=== PATIENT | male | born 1960 | race Caucasian/White ===

== ENCOUNTER 2016-07-02 20:24 | Observation (INO) | payer BC, OTHER ==
[~2016-07-02] VITALS: Ht 175.3 cm; Wt 91.7 kg
[~2016-07-02 20:24] MED LIST: AZIT250T PO; BENZ200C59 PO; CHOL1CAP85 PO; FLUT0.0529 NAE; GUAI1TAB55 PO; HYDR-3419 PO; HYDR5SYP11 PO; IPRASOL4 INH; LCTX PO; NXM/40 PO; PRED10TA PO; PROP20TA67 PO; TRIA120A
[2016-07-02] MEDS ORDERED: SODIUM CHLORIDE 0.9% 1000ML 1,000 ML IV STA (20:45)
[2016-07-02] MEDS ORDERED: ONDANSETRON INJ 2 MG/ML 2 ML VIAL IV STA ×2 (20:45→20:53)
--- NOTE | 2016-07-02 20:59 | EMERGENCY ROOM VISIT NOTE ---
History Report prepared by Demetrio: Shayy Robertson Under the Supervision of: Dr. Jenn Schuster D.O. First contact with patient: 20:34 Chief Complaint: VOMITING Stated Complaint: VOMITING, DIZZINESS, SWEATING History of Present Illness The patient is a 55 year old male who presents to the Emergency Room with complaints of persistent room spinning dizziness starting 2.5 hours [employer]LLOW [employer] K[employer]IFE [employer]BLER. The patient states that after eating dinner he started feeling dizziness and then one hour later started having diaphoresis and vomiting. The patient states that prior to vomiting he had chest pain and abdominal pain. The patient states that he saw blood in his vomit. He states the has had blood in his vomit in the past. The patient's sister states that the patient had a chicken salad for lunch today and believes it might have caused the symptoms. The patient states that he has respiratory problems at baseline but states that it also feels like he is having trouble breathing currently. 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 Review of Systems See HPI for pertinent positives & negatives. A total of 10 systems reviewed and were otherwise negative. Past Medical & Surgical Medical Problems: (1) Acid reflux (2) Asthma Family History Diabetes mellitus Gallbladder disease Heart disease Hypertension Kidney disease Kidney stones Seizures Social History Smoking Status: Former Smoker Alcohol Use: other Marital Status: single Housing Status: lives alone Occupation Status: employed Current/Historical Medications Scheduled Aspirin (Aspirin 81), 81 MG PO QAM Azelastine Hcl (Astepro), 2 SPRY EDGAR BID Cetirizine (Zyrtec), 10 MG PO DAILY Cyclosporine (Ophth) (Restasis), 1 DROP OPB BID Docusate Sodium (Docusate Sodium), 100 MG PO BID Fluorometholone (Ophth) (Fluorometholone), 1 DROP OPB BID Gabapentin (Neurontin), 100 MG PO TID Guaifenesin Ext Rel (Mucinex Ext Rel), 1,200 MG PO Q12 Ipratropium-Albuterol (Duoneb), 1 TREATMENT INH QID Lansoprazole (Prevacid), 30 MG PO DAILY Mometasone Furoate-Formoterol (Dulera 200/5 Mcg), 2 PUFFS INH BID Montelukast Sodium (Singulair), 10 MG PO HS Polyethylene Glycol 3350 (Miralax), 17 GM PO DAILY Primidone (Mysoline), 100 MG PO HS Ranitidine (Zantac), 300 MG PO HS Tiotropium [place] (Spiriva Handihaler), 1 CAP INH QAM Triamcinolone Acet (Triamcinolone Acetonide), 1 APPLN TOP TID Scheduled PRN Amoxicillin & Pot Clavulanate (Augmentin 875-125 mg), 1 TAB PO BID PRN for RESCUE KIT Dicyclomine Hcl (Bentyl), 10 MG PO TID PRN for STOMACH PAIN Furosemide (Lasix), 20 MG PO QAM PRN for WT GAIN OR FLUID RETENTION Hydroxyzine Pamoate (Vistaril), 25 MG PO HS PRN for Itching Ipratropium-Albuterol (Combivent Respimat), 2 PUFFS INH QID PRN for Shortness of Breath Prednisone (Prednisone Tab), 20 MG PO RESCUE DOSE PRN for RESCUE KIT Saline (Saline Nasal [place]), 1 SPRAY N/A Q2-4HRS PRN for DRYNESS Allergies Coded Allergies: No Known Allergies (Unverified , 07/02/16) Physical Exam Vital Signs Date Time Temp Pulse Resp B/P Pulse Ox O2 Delivery O2 Flow Rate FiO2 07/03/16 01:12 91 07/03/16 01:01 89 18 127/75 98 Room Air 07/03/16 00:19 89 18 128/82 95 Room Air 07/02/16 23:30 73 18 128/84 95 Room Air 07/02/16 22:06 72 20 122/75 100 Room Air 07/02/16 21:10 77 07/02/16 21:09 75 24 117/81 94 Room Air 07/02/16 20:31 78 20 156/89 95 Room Air Physical Exam General: Patient is moaning, dry heaving. HEENT: Head - normocephalic and atraumatic Pupils are equal, round, and reactive to light. The patient refused to significantly open his eyes because this exacerbated the room spinning. Nose - moist nasal mucosa without discharge. Mouth - moist buccal mucosa. Oropharynx is nonerythematous and there is no tonsillar exudate or edema noted. Neck: Supple; no JVD, nuchal rigidity, cervical lymphadenopathy. Heart: Regular rate and rhythm. There is a normal S1 and S2 with no murmurs, clicks, or gallops appreciated. Lungs: Clear to auscultation bilaterally with no wheezes, rales, or rhonchi. Abdomen: Soft, completely nontender, nondistended, with good bowel sounds. There are no palpable pulsatile masses or hepatosplenomegaly. There is no guarding, rigidity, or rebound noted. Extremities: No evidence of cyanosis, clubbing, or edema. There are easily palpable peripheral pulses. Skin: warm and dry with good turgor and no rashes. Medical Decision & Procedures ER Provider Diagnostic Interpretation: CT results as stated below per my review and radiologist interpretation: Preliminary Findings Only--- See Final Report for Complete Findings: CT HEAD: No intracranial hemorrhage or mass effect Under pneumatized left mastoid air cells CT ABDOMEN & PELVIS Mild diffuse colonic wall thickening, suspicious for a nonspecific colitis. Apparent fatty infiltration of the colonic wall suggest chronic inflammatory bowel disease. Correlate with medical history. Remainder of examination shows no define evidence for an acute inflammatory process No evidence for hemorrhage or a mass. Radiologist: Rashad Jack MD Study ready at 0008 and initial results transmitted at 0018 Laboratory Results Test 07/02/16 20:50 Immature Granulocyte % (Auto) 0.3 % White Blood Count 13.40 K/uL (4.8-10.8) Red Blood Count 4.89 M/uL (4.7-6.1) Hemoglobin 15.4 g/dL (14.0-18.0) Hematocrit 44.9 % (42-52) Mean Corpuscular Volume 91.8 fL (80-100) Mean Corpuscular Hemoglobin 31.5 pg (25-34) Mean Corpuscular Hemoglobin Concent 34.3 g/dl (32-36) Platelet Count 273 K/uL (130-400) Mean Platelet Volume 9.6 fL (7.4-10.4) Neutrophils (%) (Auto) 68.9 % Lymphocytes (%) (Auto) 21.3 % Monocytes (%) (Auto) 7.2 % Eosinophils (%) (Auto) 1.8 % Basophils (%) (Auto) 0.5 % Neutrophils # (Auto) 9.24 K/uL (1.4-6.5) Lymphocytes # (Auto) 2.85 K/uL (1.2-3.4) Monocytes # (Auto) 0.96 K/uL (0.11-0.59) Eosinophils # (Auto) 0.24 K/uL (0-0.5) Basophils # (Auto) 0.07 K/uL (0-0.2) Immature Granulocyte # (Auto) 0.04 K/uL (0.00-0.02) Red Blood Cell Morphology Unremarkable Total Bilirubin 0.4 mg/dl (0.2-1) Direct Bilirubin < 0.1 mg/dl (0-0.2) Aspartate Amino Transf (AST/SGOT) 21 U/L (15-37) Alanine Aminotransferase (ALT/SGPT) 29 U/L (12-78) Alkaline Phosphatase 112 U/L (45-117) Total Creatine Kinase 152 U/L (39-308) Creatine Kinase MB 1.6 ng/ml (0.5-3.6) Creatine Kinase MB Ratio 1.1 (0-3.0) Troponin I < 0.015 ng/ml (0-0.045) Total Protein 7.0 gm/dl (6.4-8.2) Albumin 3.7 gm/dl (3.4-5.0) Lipase 132 U/L (73-393) Laboratory results per my review. Medications Administered Medications (Trade) Dose Ordered Sig/Ericka Route Start Time Stop Time Status Last Admin Dose Admin Ondansetron HCl 4 mg 4 mg NOW STAT IV 07/02/16 20:45 07/02/16 20:47 DC 07/02/16 21:01 4 MG Sodium Chloride (Nss 1000ml) 1,000 ml @ 250 mls/hr Q4H STAT IV 07/02/16 20:45 07/03/16 00:44 DC 07/02/16 21:02 250 MLS/HR Ondansetron HCl (Zofran Inj) 4 mg NOW STAT IV 07/02/16 20:53 07/02/16 20:54 DC 07/02/16 21:02 4 MG Lorazepam 2 mg 2 mg NOW STAT IV 07/02/16 21:58 07/02/16 21:59 DC 07/02/16 22:04 2 MG Promethazine HCl/ Sodium Chloride (Phenergan Inj/ Nss 50ml) 51 ml @ 204 mls/hr NOW STAT IV 07/02/16 23:14 07/02/16 23:28 DC 07/02/16 23:25 204 MLS/HR Meclizine HCl (Antivert Tab) 25 mg NOW STAT PO 07/03/16 00:33 07/03/16 00:34 DC 07/03/16 00:42 25 MG Procedure Medications Administered: Sodium Chloride Ondansetron HCl Lorazepam Promethazine HCl 25 mg/Sodium Chloride Meclizine ECG Indication: vomiting Rate (beats per minute): 72 Rhythm: normal sinus Findings: no acute ischemic change, no ectopy ED Course 2033: Past medical records reviewed. The patient was evaluated in room B5. A complete history and physical exam was performed. A twelve-lead EKG was obtained as described above. An IV lock was initiated and labs were drawn as above. 2044: Ordered Sodium Chloride 1,000 ml @ 250 mls/hr IV, Zofran Inj 4 mg IV. 2156: I reevaluated the patient and he states he is still nauseated and is dizzy. 2157: Ordered Ativan Inj 2 mg IV. 2231: I reevaluated the patient and he was fast asleep. I will come back to wake him up later and try to see if he can drink. I went over the lab results with the patient's sister. 0: I reevaluated the patient. When he woke up he started to vomit and is unable to open is eyes due to the dizziness. He states he is also having right lower abdominal pain now. He will go for a CT of his head and abdomen. The patient states that he has seen a Salvage Mend Worker in the past due to constipation and GERD. 4: Ordered Promethazine HCl 25 mg/ Sodium Chloride 51 ml @ 204 mls/hr IV. 0030: I reevaluated the patient. He states he is still not any better. He is still unable to open his eyes due to the dizziness and is still vomiting. I reviewed the results of all the testing with the patient and his sister. 7: I discussed the case with Dr. Ru Garcia Hospitalist. He agreed to evaluate the patient for further management and care. Medical Decision The patient is a 55 year old male who presents to the ED with dizziness and vomiting. Differential diagnosis includes pancreatitis, cardiac ischemia, appendicitis, vertigo, labyrinthitis, food borne illness, gastritis, and small bowel obstruction. Labs: White count 13.4 Stable H&H Normal renal function Glucose 159 Normal LFTs Normal cardiac enzymes Normal Lipase This is a 55-year-old male patient who had a fairly sudden onset of room spinning and vomiting. His symptoms seemed consistent with an episode of vertigo, however the patient describes some right lower quadrant abdominal pain and a headache. CT scan of the brain was unremarkable. CT scan of the abdomen/ pelvis showed a nonspecific colitis. The patient made it very clear that the majority of his symptoms are secondary to the room spinning. He felt that he is unable to go home in his condition. I discussed the case with the [facility] Hospitalist and they will evaluate for further management. Consults Time Called: 30 Consulting Physician: Dr. Ru Mendoza Returned Call: [phone] I discussed the case with Dr. Ru Mendoza. He agreed to evaluate the patient for further management and care. Impression Primary Impression: Vertigo Additional Impression: Vomiting Scribe Attestation The scribe's documentation has been prepared under my direction and personally reviewed by me in its entirety. I confirm that the note above accurately reflects all work, treatment, procedures, and medical decision making performed by me. Departure Information Dispostion Being Evaluated By Hospitalist Referrals Gale Walls M.D. (MEDICAL) (PCP) Patient Instructions My [facility] Problem Qualifiers
[2016-07-02 21:03] LABS: HEMATOCRIT 44.9 % (42-52); MEAN CELL VOLUME 91.8 fL (80-100); MEAN CORPUSCULAR HEMOGLOBIN 31.5 pg (25-34); MEAN CORPUSCULAR HGB CONC 34.3 g/dl (32-36); MEAN PLATELET VOLUME 9.6 fL (7.4-10.4); PLATELET COUNT 273 K/uL (130-400); RED BLOOD COUNT 4.89 M/uL (4.7-6.1)
[2016-07-02 21:20] LABS: ALT/SGPT 29 U/L (12-78); BLOOD UREA NITROGEN 16 mg/dl (7-18); BUN/CREATININE RATIO 18.1 (10-20); CARBON DIOXIDE 27 mmol/L (21-32); CHLORIDE 107 mmol/L (98-107); CREATININE 0.86 mg/dl (0.60-1.40); GLUCOSE 159 mg/dl (70-99); POTASSIUM 3.6 mmol/L (3.5-5.1); SODIUM 142 mmol/L (136-145)
[2016-07-02 21:24] LABS: BASO % 0.5 %; BASO ABS # 0.07 K/uL (0-0.2); COMPLETE YES; EOS % 1.8 %; IG% 0.3 %; LYMPH % 21.3 %; LYMPH ABS # 2.85 K/uL (1.2-3.4); MONO % 7.2 %; NEUT % 68.9 %
[2016-07-02 21:25] LABS: ALKALINE PHOSPHATASE 112 U/L (45-117); AST/SGOT 21 U/L (15-37); CKMB/CK RATIO 1.1 (0-3.0)
[2016-07-02] MEDS ORDERED: DICY10CA55 PO (21:52)
[2016-07-02] MEDS ORDERED: CETI10TA84 PO (21:52)
[2016-07-02] MEDS ORDERED: LANS30CA12 PO (21:52)
[2016-07-02] MEDS ORDERED: LORAZEPAM 2 MG/ML 1 ML VIAL IV STA (21:58)
[2016-07-02] MEDS ORDERED: PROMETHAZINE HCL INJ 25 MG in SODIUM CHLORIDE 0.9% 50ML 50 ML IV STA (23:14)
[2016-07-02] MEDS ORDERED: OPTIRAY 320 IV PRN (23:30)
[2016-07-03] MEDS ORDERED: MECLIZINE HCL 25 MG TAB PO STA (00:33)
[2016-07-03] MEDS ORDERED: ONDANSETRON INJ 2 MG/ML 2 ML VIAL IV PRN (02:15)
[2016-07-03 03:15] VITALS: BP 113/71; PULSE 68; TEMP 36.3; O2SAT 93; Ht 175.3 cm; Wt 91.7 kg
[2016-07-03] MEDS ORDERED: SODIUM CHLORIDE 0.9% 1000ML 1,000 ML IV SCH (04:15)
--- NOTE | 2016-07-03 05:56 | History and Physical ---
History & Physical Date & Time of Service: Jul 03, 2016 at 05:31 Chief Complaint: Vertigo, Vomiting Primary Care Physician: Gale Walls M.D. (MEDICAL) History of Present Illness Source: patient, clinic records, hospital records 55 year old male with PMH of COPD, tremor, Cholesteatoma of L ear presents to the Emergency Room with complaints of vomiting and dizziness that started about 7pm last night. Pt said that the symptoms started after eating a chicken salad. He said about six hours later he started feeling dizziness and then one hour later started having diaphoresis and vomiting.He said that he had 6 episodes of vomiting associated with diffuse cramping abdominal pain. He said that there was some blood only in the 1st episode. He said that he still feels dizzy, he describes it like the room is spinning. Pt also complaint of SOB that he said that s baseline because he has COPD. He has not had any vomiting since he has been in the ER. Past Medical/Surgical History Medical Problems: (1) Asthma Status: Chronic Family History Diabetes mellitus Gallbladder disease Heart disease Hypertension Kidney disease Kidney stones Seizures Social History Smoking Status: Former Smoker Marital Status: single Occupational Status: employed Immunizations History of Influenza Vaccine: Yes Influenza Vaccine Date: May 30, 2013 History of Tetanus Vaccine?: unknown History of Pneumococcal: Yes Pneumococcal Date: May 30, 2013 History of Hepatitis B Vaccine: No Multi-Drug Resistant Organisms History of MDRO: No Allergies Coded Allergies: No Known Allergies (Unverified , 07/02/16) Home Medications Scheduled Aspirin (Aspirin 81), 81 MG PO QAM Azelastine Hcl (Astepro), 2 SPRY EDGAR BID Cetirizine (Zyrtec), 10 MG PO DAILY Cyclosporine (Ophth) (Restasis), 1 DROP OPB BID Docusate Sodium (Docusate Sodium), 100 MG PO BID Fluorometholone (Ophth) (Fluorometholone), 1 DROP OPB BID Gabapentin (Neurontin), 100 MG PO TID Ipratropium-Albuterol (Duoneb), 1 TREATMENT INH QID Lansoprazole (Prevacid), 30 MG PO DAILY Mometasone Furoate-Formoterol (Dulera 200/5 Mcg), 2 PUFFS INH BID Montelukast Sodium (Singulair), 10 MG PO HS Polyethylene Glycol 3350 (Miralax), 17 GM PO DAILY Primidone (Mysoline), 100 MG PO HS Ranitidine (Zantac), 300 MG PO HS Tiotropium [place] (Spiriva Handihaler), 1 CAP INH QAM Triamcinolone Acet (Triamcinolone Acetonide), 1 APPLN TOP TID Scheduled PRN Amoxicillin & Pot Clavulanate (Augmentin 875-125 mg), 1 TAB PO BID PRN for RESCUE KIT Dicyclomine Hcl (Bentyl), 10 MG PO TID PRN for STOMACH PAIN Furosemide (Lasix), 20 MG PO QAM PRN for WT GAIN OR FLUID RETENTION Hydroxyzine Pamoate (Vistaril), 25 MG PO HS PRN for Itching Ipratropium-Albuterol (Combivent Respimat), 2 PUFFS INH QID PRN for Shortness of Breath Prednisone (Prednisone Tab), 20 MG PO RESCUE DOSE PRN for RESCUE KIT Saline (Saline Nasal [place]), 1 SPRAY N/A Q2-4HRS PRN for DRYNESS Review of Systems Constitutional: + sweats, No chills, No fever Eyes: No discharge ENT: + hearing loss, + nasal symptoms, + unusual epistaxis Respiratory: + dyspnea on exertion, No cough, No sputum Cardiovascular: No claudication, No palpitations Abdomen: + nausea, + pain, + vomiting, No constipation, No diarrhea Musculoskeletal: No calf pain Genitourinary - Male: No dysuria, No hematuria Neurologic: + vertigo, No memory loss, No weakness Psychiatric: No substance abuse Endocrine: No excessive thirst Hematologic / Lymphatic: No night sweats Integumentary: No itch, No rash Physical Exam Vital Signs Date Time Temp Pulse Resp B/P Pulse Ox O2 Delivery O2 Flow Rate FiO2 07/03/16 03:15 36.3 68 20 113/71 93 Room Air 07/03/16 02:47 75 18 127/82 98 07/03/16 01:12 91 07/03/16 01:01 89 18 127/75 98 Room Air 07/03/16 00:19 89 18 128/82 95 Room Air 07/02/16 23:30 73 18 128/84 95 Room Air 07/02/16 22:06 72 20 122/75 100 Room Air 07/02/16 21:10 77 07/02/16 21:09 75 24 117/81 94 Room Air 07/02/16 20:31 78 20 156/89 95 Room Air General Appearance: WD/WN, no apparent distress Head: normocephalic, atraumatic Eyes: normal inspection, PERRL ENT: normal ENT inspection, + pertinent finding (deacrease hearing fx) Neck: supple, no JVD Respiratory/Chest: chest non-tender, no respiratory distress, no accessory muscle use Cardiovascular: regular rate, rhythm, no JVD, no murmur Abdomen/GI: normal bowel sounds, soft, + tenderness Back: normal inspection, no CVA tenderness Extremities/Musculoskelatal: normal inspection, no calf tenderness Neurologic/Psych: no motor/sensory deficits, alert, normal mood/affect Skin: normal color, warm/dry Diagnostics Laboratory Results Results Past 24 Hours Test 07/02/16 20:50 Range/Units White Blood Count 13.40 4.8-10.8 K/uL Red Blood Count 4.89 4.7-6.1 M/uL Hemoglobin 15.4 14.0-18.0 g/dL Hematocrit 44.9 42-52 % Mean Corpuscular Volume 91.8 80-100 fL Mean Corpuscular Hemoglobin 31.5 25-34 pg Mean Corpuscular Hemoglobin Concent 34.3 32-36 g/dl Platelet Count 273 130-400 K/uL Mean Platelet Volume 9.6 7.4-10.4 fL Neutrophils (%) (Auto) 68.9 % Lymphocytes (%) (Auto) 21.3 % Monocytes (%) (Auto) 7.2 % Eosinophils (%) (Auto) 1.8 % Basophils (%) (Auto) 0.5 % Neutrophils # (Auto) 9.24 1.4-6.5 K/uL Lymphocytes # (Auto) 2.85 1.2-3.4 K/uL Monocytes # (Auto) 0.96 0.11-0.59 K/uL Eosinophils # (Auto) 0.24 0-0.5 K/uL Basophils # (Auto) 0.07 0-0.2 K/uL RDW Standard Deviation 46.9 36.4-46.3 fL RDW Coefficient of Variation 13.9 11.5-14.5 % Immature Granulocyte % (Auto) 0.3 % Immature Granulocyte # (Auto) 0.04 0.00-0.02 K/uL Red Blood Cell Morphology Unremarkable Sodium Level 142 136-145 mmol/L Potassium Level 3.6 3.5-5.1 mmol/L Chloride Level 107 98-107 mmol/L Carbon Dioxide Level 27 21-32 mmol/L Anion Gap 8.0 3-11 mmol/L Blood Urea Nitrogen 16 7-18 mg/dl Creatinine 0.86 0.60-1.40 mg/dl Est Creatinine Clear Calc Drug Dose 108.0 ml/min Estimated GFR () 114.7 Estimated GFR (Non- 99.0 BUN/Creatinine Ratio 18.1 10-20 Random Glucose 159 70-99 mg/dl Calcium Level 9.0 8.5-10.1 mg/dl Total Bilirubin 0.4 0.2-1 mg/dl Direct Bilirubin < 0.1 0-0.2 mg/dl Aspartate Amino Transf (AST/SGOT) 21 15-37 U/L Alanine Aminotransferase (ALT/SGPT) 29 12-78 U/L Alkaline Phosphatase 112 45-117 U/L Total Creatine Kinase 152 39-308 U/L Creatine Kinase MB 1.6 0.5-3.6 ng/ml Creatine Kinase MB Ratio 1.1 0-3.0 Troponin I < 0.015 0-0.045 ng/ml Total Protein 7.0 6.4-8.2 gm/dl Albumin 3.7 3.4-5.0 gm/dl Lipase 132 73-393 U/L Diagnostic Radiology CT HEAD: No intracranial hemorrhage or mass effect Under pneumatized left mastoid air cells CT ABDOMEN & PELVIS Mild diffuse colonic wall thickening, suspicious for a nonspecific colitis. Apparent fatty infiltration of the colonic wall suggest chronic inflammatory bowel disease. Correlate with medical history. Remainder of examination shows no define evidence for an acute inflammatory process No evidence for hemorrhage or a mass. Radiologist: Rashad Jack MD Impression Assessment and Plan Vomiting associated with abdominal pain Mostly due to Viral gastroenteritis CT showed Mild diffuse colonic wall thickening, suspicious for a nonspecific colitis. NO abx was given IVF, Zofran and pantoprazole Monitor h/h due to blood in the vomiting? hold aspirin Symptoms resolved Dizziness CT head negative continue meclizine PT eval COPD no exacerbation continue home med Essential Tremor Continue mysoline DVT px on SCDs will encourage to ambulate CODE Status FULL CODE Level of Care Med/Surg Advanced Directives Existing Living Will: No Existing Power of Social Work Nurse: No Resuscitation Status FULL RESUSCITATION VTE Prophylaxis VTE Risk Assessment Done? Y/N: Yes Risk Level: Moderate Given or contraindicated: SCD's
[2016-07-03] MEDS ORDERED: MECLIZINE HCL 25 MG TAB PO PRN (06:00)
[2016-07-03] MEDS ORDERED: IV FLUIDS COMPLETED PRN (06:45)
[2016-07-03 07:12] LABS: HEMATOCRIT 43.3 % (42-52); MEAN CELL VOLUME 92.5 fL (80-100); MEAN CORPUSCULAR HEMOGLOBIN 31.4 pg (25-34); MEAN CORPUSCULAR HGB CONC 33.9 g/dl (32-36); MEAN PLATELET VOLUME 9.6 fL (7.4-10.4); PLATELET COUNT 243 K/uL (130-400); RED BLOOD COUNT 4.68 M/uL (4.7-6.1); WHITE BLOOD COUNT 12.66 K/uL (4.8-10.8)
--- NOTE | 2016-07-03 07:19 | DIAGNOSTIC IMAGING REPORT ---
HEAD CT NONCONTRAST CT DOSE: 651.12 mGy.cm HISTORY: Lightheaded. eval for mass or bleed TECHNIQUE: Multiaxial CT images of the head were performed without the use of intravenous contrast. Automated exposure control was utilized for this study. Comparison: None. Findings: Mild mucosal thickening within the left maxillary sinus and left frontal sinus. Opacification of the hypoplastic left mastoid air cells and left middle ear cavity which is likely chronic. The calvarium and skull base are intact. The ventricles and sulci are within normal limits. There is no mass, hematoma, midline shift, or acute infarct. Impression: No acute intracranial abnormality. Hypoplastic and opacified left mastoid air cells and left middle ear cavity which is likely chronic. Electronically signed by: Kevin Appiah M.D. 07/03/2016 7:17 AM Dictated Date/Time: 07/03/2016 7:15 AM
[2016-07-03 07:20] VITALS: BP 120/73; PULSE 65; TEMP 36.5; O2SAT 93
--- NOTE | 2016-07-03 07:27 | DIAGNOSTIC IMAGING REPORT ---
CT ABD/PELVIS IV CONTRAST ONLY CLINICAL HISTORY: Right lower quadrant abdominal pain COMPARISON STUDY: 05/24/2013 TECHNIQUE: Following the IV administration of 91 mL of Optiray-320, CT scan of the abdomen and pelvis was performed from the lung bases to the proximal femurs. Images are reviewed in the axial, sagittal, and coronal planes. IV contrast was administered without complication. CT DOSE: 561.11 mGy.cm FINDINGS: Lower chest: There are mild dependent atelectatic changes. There is a 9 mm nodular left basilar airspace opacity. This is likely atelectatic/inflammatory. There is lower lobe mucus plugging. Liver: There is mild hepatic steatosis. No focal masses are visualized. The portal vein appears patent. Gallbladder: Unremarkable. Spleen: Normal in size and attenuation. Pancreas: Unremarkable. Adrenal glands: Unremarkable. Kidneys: There is symmetric renal cortical enhancement. The kidneys are normal in size without hydronephrosis. Bowel: There is hypertrophy of the simple mucosal fat within the colon. The appendix appears normal. There is no acute diverticulitis. There are no transition zones indicate bowel obstruction. Peritoneum: There is no intraperitoneal free air or abdominal ascites. Vasculature: The abdominal aorta is normal in course and caliber. Adenopathy: None. Pelvic viscera: The bladder, and pelvic viscera are unremarkable. Skeletal structures: No destructive osseous lesions are seen. IMPRESSION: 1. No evidence of bowel obstruction. No evidence of free air 2. Normal appendix. No evidence of acute diverticulitis 3. Hypertrophy of the submucosal fat within the colon. This a nonspecific finding often seen in inflammatory bowel disease 4. Lower lobe mucus plugging. 9 mm left lower lobe nodular airspace opacity, likely atelectatic or inflammatory. Electronically signed by: Jabari Yusuf M.D. 07/03/2016 7:25 AM Dictated Date/Time: 07/03/2016 7:20 AM
[2016-07-03 07:46] LABS: BUN/CREATININE RATIO 19.1 (10-20); CALCIUM 8.1 mg/dl (8.5-10.1); CREATININE 0.67 mg/dl (0.60-1.40)
[2016-07-03] MEDS: ALBUT/IPRATROP 3MG/0.5MG NEB 3 ML VIAL INH SCH ×3 (08:00→16:00)
[2016-07-03] MEDS: TRIAMCINOLONE ACET 0.5% CR 15 GM TUBE EXT SCH ×3 (08:34→13:17)
[2016-07-03] MEDS: GABAPENTIN 100 MG CAP PO SCH ×2 (08:34→13:41)
[2016-07-03] MEDS ORDERED: PANTOprazole SOD 40 MG TAB PO SCH (09:00)
[2016-07-03] MEDS ORDERED: TIOTROPIUM BROMIDE 5 PUFF/90 MCG INH INH SCH (09:00)
[2016-07-03] MEDS ORDERED: CETIRIZINE HCL 10 MG TAB PO SCH (09:00)
[2016-07-03] MEDS ORDERED: NURSING VERBAL MED ORDER ONE (10:15)
--- NOTE | 2016-07-03 10:34 | Progress Note ---
Internal Med Progress Note Date of Service: Jul 03, 2016. Provider Documentation: SUBJECTIVE: Patient is doing better today. Tolerated mechanical soft diet well No nausea, vomiting, abdominal pain ,diarrhea, fever, chills. Vertigo has resolved, no dizziness, headaches, localized muscle weakness, numbness/decreased sensation OBJECTIVE: Vital Signs-as noted below Exam: General-AAOX3, no distress ENT-Poor oral hygiene Neck-Supple Lungs-AEBE decreased, mild wheezing Heart-S1, S2 normal, no murmurs Abdomen-Soft, non tender, non distended, BS present Extremities-No edema Neuro-AAOX3, Power- 5/5 all extremities, No nystagmus Lab data as noted below. Diagnostic Radiology CT HEAD: No intracranial hemorrhage or mass effect Under pneumatized left mastoid air cells CT ABDOMEN & PELVIS Mild diffuse colonic wall thickening, suspicious for a nonspecific colitis. Apparent fatty infiltration of the colonic wall suggest chronic inflammatory bowel disease. Correlate with medical history. Remainder of examination shows no define evidence for an acute inflammatory process No evidence for hemorrhage or a mass. ASSESSMENT & PLAN: Assessment and Plan : VOMITING/NAUSEA/ABDOMINAL PAIN: Improved Likely secondary to Viral gastroenteritis/Non specific colitis CT showed Mild diffuse colonic wall thickening, suspicious for a nonspecific colitis. Said ? saw blood in first vomitus, but never after that, possibly salad dressing. -IV Fluids -No indication for antibiotics -Supportive care -Advance diet as tolerated VERTIGO- C/o vertigo which started before nausea/vomiting began. Says has had this in past as well. Has hx of cholesteotoma of left ear, could be secondary to inner ear issues ? -Resolved now -Encouraged ambulation -Work up- CT head negative for acute abnormalities -Meclizine PRN COPD Mild wheezing, but no signs of exacerbation -Continue with home inhalers -Will give few nebs rx while in hospital continue home med ESSENTIAL TREMORS- Stable -Continue mysoline DVT px on SCDs Encouraged ambulation CODE Status -FULL CODE Vital Signs: Date Time Temp Pulse Resp B/P Pulse Ox O2 Delivery O2 Flow Rate FiO2 07/03/16 07:20 36.5 65 16 120/73 93 Room Air 07/03/16 03:15 36.3 68 20 113/71 93 Room Air 07/03/16 02:47 75 18 127/82 98 07/03/16 01:12 91 07/03/16 01:01 89 18 127/75 98 Room Air 07/03/16 00:19 89 18 128/82 95 Room Air 07/02/16 23:30 73 18 128/84 95 Room Air 07/02/16 22:06 72 20 122/75 100 Room Air 07/02/16 21:10 77 07/02/16 21:09 75 24 117/81 94 Room Air 07/02/16 20:31 78 20 156/89 95 Room Air Lab Results: Results Past 24 Hours Test 07/02/16 20:50 07/03/16 06:50 07/03/16 10:27 Range/Units White Blood Count 13.40 12.66 4.8-10.8 K/uL Red Blood Count 4.89 4.68 4.7-6.1 M/uL Hemoglobin 15.4 14.7 14.0-18.0 g/dL Hematocrit 44.9 43.3 42-52 % Mean Corpuscular Volume 91.8 92.5 80-100 fL Mean Corpuscular Hemoglobin 31.5 31.4 25-34 pg Mean Corpuscular Hemoglobin Concent 34.3 33.9 32-36 g/dl Platelet Count 273 243 130-400 K/uL Mean Platelet Volume 9.6 9.6 7.4-10.4 fL Neutrophils (%) (Auto) 68.9 % Lymphocytes (%) (Auto) 21.3 % Monocytes (%) (Auto) 7.2 % Eosinophils (%) (Auto) 1.8 % Basophils (%) (Auto) 0.5 % Neutrophils # (Auto) 9.24 1.4-6.5 K/uL Lymphocytes # (Auto) 2.85 1.2-3.4 K/uL Monocytes # (Auto) 0.96 0.11-0.59 K/uL Eosinophils # (Auto) 0.24 0-0.5 K/uL Basophils # (Auto) 0.07 0-0.2 K/uL RDW Standard Deviation 46.9 48.0 36.4-46.3 fL RDW Coefficient of Variation 13.9 14.2 11.5-14.5 % Immature Granulocyte % (Auto) 0.3 % Immature Granulocyte # (Auto) 0.04 0.00-0.02 K/uL Red Blood Cell Morphology Unremarkable Sodium Level 142 145 136-145 mmol/L Potassium Level 3.6 4.0 3.5-5.1 mmol/L Chloride Level 107 111 98-107 mmol/L Carbon Dioxide Level 27 28 21-32 mmol/L Anion Gap 8.0 6.0 3-11 mmol/L Blood Urea Nitrogen 16 13 7-18 mg/dl Creatinine 0.86 0.67 0.60-1.40 mg/dl Est Creatinine Clear Calc Drug Dose 108.0 142.7 ml/min Estimated GFR () 114.7 127.1 Estimated GFR (Non- 99.0 109.7 BUN/Creatinine Ratio 18.1 19.1 10-20 Random Glucose 159 98 70-99 mg/dl Calcium Level 9.0 8.1 8.5-10.1 mg/dl Total Bilirubin 0.4 0.2-1 mg/dl Direct Bilirubin < 0.1 0-0.2 mg/dl Aspartate Amino Transf (AST/SGOT) 21 15-37 U/L Alanine Aminotransferase (ALT/SGPT) 29 12-78 U/L Alkaline Phosphatase 112 45-117 U/L Total Creatine Kinase 152 39-308 U/L Creatine Kinase MB 1.6 0.5-3.6 ng/ml Creatine Kinase MB Ratio 1.1 0-3.0 Troponin I < 0.015 0-0.045 ng/ml Total Protein 7.0 6.4-8.2 gm/dl Albumin 3.7 3.4-5.0 gm/dl Lipase 132 73-393 U/L
[2016-07-03 11:28] VITALS: BP 100/72; PULSE 67; O2SAT 94
[2016-07-03 15:13] VITALS: BP 116/70; PULSE 64; TEMP 36.6; O2SAT 95
--- NOTE | 2016-07-03 15:20 | Discharge Instructions ---
Discharge Instructions Date of Service Jul 03, 2016. Admission Reason for Admission: Vertigo, Vomiting Discharge Discharge Diagnosis / Problem: 1. Acute gastroenteritis Discharge Goals Goal(s): Diagnostic testing, Therapeutic intervention Activity Recommendations Activity Limitations: resume your previous activity . Instructions / Follow-Up Instructions / Follow-Up MEDICATION CHANGES: No changes in medications FOLLOW UP 1. Follow up with Dr Walls on 07/09/16 at 1:10 PM Current Hospital Diet Patient's current hospital diet: Regular Diet Discharge Diet Recommended Diet: Regular Diet ( TOLERATED) Pending Studies Studies pending at discharge: no Medical Emergencies . Who to Call and When: Medical Emergencies: If at any time you feel your situation is an emergency, please call 911 immediately. . Non-Emergent Contact Non-Emergency issues call your: Primary Care Provider . . "Provider Documentation" section prepared by Belgica Novak. . VTE Core Measure Inpt VTE Proph given/why not?: SCD's
--- NOTE | 2016-07-03 15:25 | Discharge Summary ---
Discharge Summary Date of Service Jul 03, 2016. Discharge Summary Admission Date: Jul 03, 2016 at 02:22 Discharge Date: Jul 03, 2016 Discharge Disposition: Home Principal Diagnosis: 1. Acute gastroenteritis/Non specific colitis Procedures: CT head CT abd/pelvis IV Fluids PT evaluation for vertigo Consultations: None Pending Studies/Follow-Up: Instructions / Follow-Up Instructions / Follow-Up MEDICATION CHANGES: No changes in medications FOLLOW UP 1. Follow up with Dr Walls on 07/09/16 at 1:10 PM Medication Reconciliation Continued Medications: Amoxicillin & Pot Clavulanate (Augmentin 875-125 mg) 1 Tab Tab 1 TAB PO BID PRN for RESCUE KIT, #14 TAB USE FOR RESCUE KIT. Aspirin (Aspirin 81) 81 Mg Tab 81 MG PO QAM Azelastine Hcl (Astepro) 0.15 % Spr 2 SPRY EDGAR BID for 30 Days, #30 ML 5 Refills Cetirizine (Zyrtec) 10 Mg Tab 10 MG PO DAILY, TAB Cyclosporine (Ophth) (Restasis) 0.05 % Emu 1 DROP OPB BID, BTL Dicyclomine Hcl (Bentyl) 10 Mg Cap 10 MG PO TID PRN for STOMACH PAIN, CAP Docusate Sodium (Docusate Sodium) 100 Mg Cap 100 MG PO BID for 7 Days, #14 CAP Fluorometholone (Ophth) (Fluorometholone) 0.1 % Dayna 1 DROP OPB BID Furosemide (Lasix) 20 Mg Tab 20 MG PO QAM PRN for WT GAIN OR FLUID RETENTION, TAB Gabapentin (Neurontin) 100 Mg Cap 100 MG PO TID, CAP Hydroxyzine Pamoate (Vistaril) 25 Mg Cap 25 MG PO HS PRN for Itching for 30 Days, CAP MAY USE [id number] IF ITCHING PERSISTS. Ipratropium-Albuterol (Duoneb) 3 Ml Nebu 1 TREATMENT INH QID, INHA Ipratropium-Albuterol (Combivent Respimat) 1 Aer Aer 2 PUFFS INH QID PRN for Shortness of Breath, INH Lansoprazole (Prevacid) 30 Mg Capcr 30 MG PO DAILY, CAP Mometasone Furoate-Formoterol (Dulera 200/5 Mcg) 1 Aer Aer 2 PUFFS INH BID for 30 Days, #13 GM 5 Refills Montelukast Sodium (Singulair) 10 Mg Tab 10 MG PO HS, TAB Polyethylene Glycol 3350 (Miralax) 1 Pow Pow 17 GM PO DAILY for CONSTIPATION/USE DIRECTED, #527 GM Prednisone (Prednisone Tab) 20 Mg Tab 20 MG PO RESCUE DOSE PRN for RESCUE KIT, TAB RESCUE KIT Primidone (Mysoline) 50 Mg Tab 100 MG PO HS, TAB Ranitidine (Zantac) 300 Mg Tab 300 MG PO HS, TAB Saline (Saline Nasal [place]) 0.65 % Spr 1 SPRAY N/A Q2-4HRS PRN for DRYNESS Tiotropium [place] (Spiriva Handihaler) 30 Puff/540 Mcg Aerp 1 CAP INH QAM, INHALER Triamcinolone Acet (Triamcinolone Acetonide) 45 Appln/15 Gm Cr 1 APPLN TOP TID for 30 Days, #15 GM 1 Refill Discontinued Medications: Guaifenesin Ext Rel (Mucinex Ext Rel) 600 Mg Tab 1200 MG PO Q12, TAB Admission Information HPI (per Admitting provider): 55 year old male with PMH of COPD, tremor, Cholesteatoma of L ear presents to the Emergency Room with complaints of vomiting and dizziness that started about 7pm last night. Pt said that the symptoms started after eating a chicken salad. He said about six hours later he started feeling dizziness and then one hour later started having diaphoresis and vomiting.He said that he had 6 episodes of vomiting associated with diffuse cramping abdominal pain. He said that there was some blood only in the 1st episode. He said that he still feels dizzy, he describes it like the room is spinning. Pt also complaint of SOB that he said that s baseline because he has COPD. He has not had any vomiting since he has been in the ER. Physical Exam (per Admitting): General Appearance: WD/WN, no apparent distress Head: normocephalic, atraumatic Eyes: normal inspection, PERRL ENT: normal ENT inspection, + pertinent finding (deacrease hearing fx) Neck: supple, no JVD Respiratory/Chest: chest non-tender, no respiratory distress, no accessory muscle use Cardiovascular: regular rate, rhythm, no JVD, no murmur Abdomen/GI: normal bowel sounds, soft, + tenderness Back: normal inspection, no CVA tenderness Extremities/Musculoskelatal: normal inspection, no calf tenderness Neurologic/Psych: no motor/sensory deficits, alert, normal mood/affect Skin: normal color, warm/dry Hospital Course Assessment and Plan : VOMITING/NAUSEA/ABDOMINAL PAIN: Improved Likely secondary to Viral gastroenteritis/Non specific colitis CT showed Mild diffuse colonic wall thickening, suspicious for a nonspecific colitis. Said ? saw blood in first vomitus, but never after that, possibly salad dressing. -IV Fluids. Tolerating PO diet well -No indication for antibiotics -Supportive care VERTIGO- C/o vertigo which started before nausea/vomiting began. Says has had this in past as well. Has hx of cholesteotoma of left ear, could be secondary to inner ear issues ? -Resolved now -Ambulated well with and without PT -Work up- CT head negative for acute abnormalities -Meclizine PRN COPD Mild wheezing, but no signs of exacerbation -Continue with home inhalers -Gave few nebs rx while in hospital ESSENTIAL TREMORS- Stable -Continue Mysoline DVT px on SCDs -Encouraged ambulation CODE Status -FULL CODE DISPOSITION: Eager to be discharged Okay to discharge home today Total time spent on discharge = 28 MINUTES This includes examination of the patient, discharge planning, medication reconciliation, and communication with other providers. Discharge Instructions Discharge Discharge Diagnosis / Problem: 1. Acute gastroenteritis Discharge Goals Goal(s): Diagnostic testing, Therapeutic intervention Activity Recommendations Activity Limitations: resume your previous activity . Instructions / Follow-Up Instructions / Follow-Up MEDICATION CHANGES: No changes in medications FOLLOW UP 1. Follow up with Dr Walls on 07/09/16 at 1:10 PM Current Hospital Diet Patient's current hospital diet: Regular Diet Discharge Diet Recommended Diet: Regular Diet ( TOLERATED) Pending Studies Studies pending at discharge: no Medical Emergencies . Who to Call and When: Medical Emergencies: If at any time you feel your situation is an emergency, please call 911 immediately. . Non-Emergent Contact Non-Emergency issues call your: Primary Care Provider . . "Provider Documentation" section prepared by Belgica Novak. . VTE Core Measure Inpt VTE Proph given/why not?: SCD's
[2016-07-03 15:46] VITALS: BP 116/70; PULSE 64; TEMP 36.6; O2SAT 95
[2016-07-03] MEDS ORDERED: PRIMIDONE 50 MG TAB PO SCH (21:00)
[2016-07-03] MEDS ORDERED: MONTELUKAST SOD 10 MG TAB PO SCH (21:00)
[2016-07-12] MEDS ORDERED: MONT1TAB3 PO (07:57)
[2016-07-12] MEDS ORDERED: SPRIN/30 INH (07:57)
[2016-07-12] MEDS ORDERED: PRED20TA2 PO (07:57)
[2016-07-12] MEDS ORDERED: SALI1SPR3 NAE (07:57)
[2016-07-12] MEDS ORDERED: IPRA1AER2 INH (07:57)
[2016-07-12] MEDS ORDERED: ASPI-435 PO (08:03)
[2016-07-12] MEDS ORDERED: POLY335019 PO (14:28)
[2016-07-12] MEDS ORDERED: AZEL0.15 NAE (14:28)
[2016-07-14] MEDS ORDERED: GABA-112 PO (11:51)
[2016-07-14] MEDS ORDERED: ANT25 PO (11:51)
[2016-07-14] MEDS ORDERED: DIAZ2TAB PO (13:06)
[2016-07-14] MEDS ORDERED: ONDA8TAB62 SL (13:06)
== END 2016-07-03 16:10 | disposition home or self-care (01) ==
LOC: ENRESERVDT → ENRESERVTM → C.EDB 20:25 → C.MS2W 07-03 02:22
PROVIDERS: ADMIT Internal Medicine; ATTEND Internal Medicine
DX: K52.9 Noninfective gastroenteritis and colitis, unspecified (principal); J44.9 Chronic obstructive pulmonary disease, unspecified; G25.0 Essential tremor; H71.92 Unspecified cholesteatoma, left ear; R42 Dizziness and giddiness; K21.9 Gastro-esophageal reflux disease without esophagitis; Z79.82 Long term (current) use of aspirin; Z87.891 Personal history of nicotine dependence; Z83.3 Family history of diabetes mellitus; Z82.49 Family history of ischemic heart disease and other diseases of the circulatory system; Z84.1 Family history of disorders of kidney and ureter

== ENCOUNTER 2016-07-12 16:56 | Observation (INO) | payer OTHER ==
[~2016-07-12] VITALS: Ht 177.8 cm; Wt 90.9 kg
[~2016-07-12 16:56] MED LIST changes: +ASPI-435 PO; +AZEL0.15 NAE; -AZIT250T PO; -BENZ200C59 PO; +CETI10TA84 PO; -CHOL1CAP85 PO; +DICY10CA55 PO; -FLUT0.0529 NAE; -GUAI1TAB55 PO; -HYDR-3419 PO; -HYDR5SYP11 PO; +IPRA1AER2 INH; +LANS30CA12 PO; -LCTX PO; +MONT1TAB3 PO; -NXM/40 PO; +POLY335019 PO; -PRED10TA PO; +PRED20TA2 PO; -PROP20TA67 PO; +SALI1SPR3 NAE; +SPRIN/30 INH; -TRIA120A
[2016-07-12] MEDS ORDERED: DOCU100C31 PO (17:08)
[2016-07-12] MEDS ORDERED: MOME200A INH (17:08)
[2016-07-12] MEDS ORDERED: RANI300T2 PO (17:08)
[2016-07-12] MEDS ORDERED: SODIUM CHLORIDE 0.9% 1000ML 1,000 ML IV STA (18:17)
[2016-07-12] MEDS ORDERED: DIAZEPAM INJ 5 MG/ML 2 ML CARP IV STA ×2 (18:28→21:47)
[2016-07-12] MEDS ORDERED: ONDANSETRON 8 MG/54 ML D5W IV STA (18:28)
[2016-07-12 19:10] LABS: PROTHROMBIN TIME (PATIENT) 10.3 SECONDS (9.0-12.0)
[2016-07-12] MEDS ORDERED: DICY10CA12 PO (19:12)
[2016-07-12] MEDS ORDERED: LANS30CA63 PO (19:12)
[2016-07-12] MEDS ORDERED: CETI10TA10 PO (19:12)
[2016-07-12 19:18] LABS: BASO % 0.4 %; BASO ABS # 0.05 K/uL (0-0.2); COMPLETE YES; EOS % 0.4 %; HEMATOCRIT 45.5 % (42-52); IG% 0.4 %; LYMPH % 11.8 %; LYMPH ABS # 1.47 K/uL (1.2-3.4); MEAN CELL VOLUME 91.7 fL (80-100); MEAN CORPUSCULAR HEMOGLOBIN 31.3 pg (25-34); MEAN CORPUSCULAR HGB CONC 34.1 g/dl (32-36); MEAN PLATELET VOLUME 9.6 fL (7.4-10.4); MONO % 4.8 %; NEUT % 82.2 %; PLATELET COUNT 304 K/uL (130-400); RED BLOOD COUNT 4.96 M/uL (4.7-6.1); WHITE BLOOD COUNT 12.41 K/uL (4.8-10.8)
[2016-07-12] MEDS ORDERED: IPRASOL4 INH (19:22)
[2016-07-12 19:34] LABS: MANUAL MICROSCOPIC REQUIRED? NO; REVIEW REQ? NO; URINE APPEARANCE CLEAR (CLEAR); URINE BILIRUBIN NEG (NEG); URINE COLOR DK YELLOW; URINE NITRITE NEG (NEG); URINE PH 8.5 (4.5-7.5); URINE SPECIFIC GRAVITY 1.024 (1.000-1.030); UROBILINOGEN NEG (NEG)
[2016-07-12 19:36] LABS: SULFASALICYLIC ACID NEG (NEG)
[2016-07-12 19:45] LABS: POTASSIUM 4.2 mmol/L (3.5-5.1); SODIUM 141 mmol/L (136-145)
[2016-07-12 19:46] LABS: ALKALINE PHOSPHATASE 126 U/L (45-117); ALT/SGPT 39 U/L (12-78); BLOOD UREA NITROGEN 10 mg/dl (7-18); BUN/CREATININE RATIO 11.6 (10-20); CALCIUM 9.6 mg/dl (8.5-10.1); CARBON DIOXIDE 29 mmol/L (21-32); CHLORIDE 105 mmol/L (98-107); CREATININE 0.83 mg/dl (0.60-1.40); GLUCOSE 134 mg/dl (70-99); THYROID STIMULATING HORMONE 0.916 uIu/ml (0.300-4.500)
[2016-07-12 19:47] LABS: CKMB/CK RATIO 0.9 (0-3.0)
[2016-07-12 19:53] LABS: AST/SGOT 27 U/L (15-37); MAGNESIUM 2.1 mg/dl (1.8-2.4)
--- NOTE | 2016-07-12 20:03 | DIAGNOSTIC IMAGING REPORT ---
MRI OF THE BRAIN WITHOUT CONTRAST CLINICAL HISTORY: Severe dizziness. Lightheadedness. COMPARISON STUDY: Head CT July 02, 2016. TECHNIQUE: Utilizing a 1.5 Xiao magnet and dedicated coil, multiplanar, multiecho imaging of the brain was performed without IV contrast. FINDINGS: There are no areas of restricted diffusion. No acute intracranial hemorrhage, midline shift or mass effect is present. Brain volume is normal for age. Ventricular system is normal. Basilar cisterns are patent. There are no extra-axial collections. Flow-voids for the major intracranial vessels are present. No intracranial masses are identified on this unenhanced examination. There is mild mucosal thickening of the sinuses. The left mastoid air cells are hypoplastic. There is opacified left mastoid air cells as well as the left middle ear. This is similar to a CT of May 24, 2013. This is likely chronic. IMPRESSION: 1. No acute intracranial findings. 2. Hypoplastic and opacified left mastoid air cells and left middle ear cavity which is likely chronic. Electronically signed by: Haroon Elias M.D. 07/12/2016 8:02 PM Dictated Date/Time: 07/12/2016 7:58 PM
--- NOTE | 2016-07-12 20:05 | DIAGNOSTIC IMAGING REPORT ---
MRA OF THE INTRACRANIAL CIRCULATION WITHOUT CONTRAST CLINICAL HISTORY: Severe dizziness, vertigo COMPARISON STUDY: None. TECHNIQUE: Utilizing a 1.5 Xiao magnet and 3-D [id number] technique, unenhanced MRA of the intracranial circulation was obtained. FINDINGS: The bilateral M1, M2, A1 and A2 segments are patent. There is no intracranial aneurysm or abrupt vessel cut off. 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 The posterior circulation is intact. IMPRESSION: 1. No intracranial aneurysm or abrupt vessel cut off. 2. 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 Electronically signed by: Haroon Elias M.D. 07/12/2016 8:04 PM Dictated Date/Time: 07/12/2016 8:02 PM
[2016-07-12] MEDS ORDERED: AMOX875T PO (21:52)
[2016-07-12] MEDS ORDERED: FURO-85 PO (21:52)
[2016-07-12] MEDS ORDERED: GABA-112 PO (21:52)
[2016-07-12] MEDS ORDERED: TRMCR515 TOP (21:52)
[2016-07-12] MEDS ORDERED: CYCL0.052 OPB (21:52)
[2016-07-12] MEDS ORDERED: HYDR25CA PO (21:52)
[2016-07-12] MEDS ORDERED: PRIM50TA29 PO (21:52)
[2016-07-12] MEDS ORDERED: FLUO0.1S12 OPB (21:52)
[2016-07-12 22:46] LABS: LYME DISEASE AB IGG NEG (NEG); LYME DISEASE AB IGM NEG (NEG)
--- NOTE | 2016-07-12 23:18 | History and Physical ---
History & Physical Date & Time of Service: Jul 12, 2016 at 23:18 Chief Complaint: Dizzy, Light Headed, Nausea Primary Care Physician: Gale Walls M.D. (MEDICAL) History of Present Illness Source: patient, family Patient is a 55 yr old male with PMH of COPD, essential tremor, Cholesteatoma of left ear, Former tobacco use, GERD, hearing loss presents with history of worsening Vertigo. Patient was recently discharged after being treated for possible viral gastroenteritis and Vertigo presents with worsening dizziness which he states as room spinning since this morning. Dizziness is associated with frontal headache, nausea, blurry vision. Dizziness improves on closing his eyes. States bright light worsens his vertigo but denies any double vision. No history of fall or head trauma. Also denies any weakness, tinnitus. He is frustrated that he had similar symptoms during previous admission and has not resolved since then. Also reports having intermittent abdominal cramping which is diffuse and constipation since last admission. Reports chronic SOB and wheezing, denies cough, chest pain currently. He has been following with Neurologist in [place] for a tumor behind his right ear that he receives an MRI every six months. He states he could not get a biopsy of the tumor because of the location of the tumor. Past Medical/Surgical History Medical Problems: (1) Acid reflux Status: Chronic (2) Asthma Status: Chronic (3) Asthma exacerbation Status: Resolved (4) Hypoxia Status: Resolved (5) Vertigo Status: Chronic PSH: Back surgeries Family History Diabetes mellitus Gallbladder disease Heart disease Hypertension Kidney disease Kidney stones Seizures Mother:Breast Cancer Father:Heart disease Brother: Bladder cancer, Leukemia Social History Smoking Status: Former Smoker Alcohol Use: none Drug Use: none Marital Status: single Occupational Status: employed Immunizations History of Influenza Vaccine: Yes Influenza Vaccine Date: May 30, 2013 History of Tetanus Vaccine?: unknown History of Pneumococcal: Yes Pneumococcal Date: May 30, 2013 History of Hepatitis B Vaccine: No Multi-Drug Resistant Organisms History of MDRO: No Allergies Coded Allergies: No Known Allergies (Unverified , 07/02/16) Home Medications Scheduled Aspirin (Aspirin 81), 81 MG PO QAM Azelastine Hcl (Astepro), 2 SPRY EDGAR BID Cetirizine Hcl (Zyrtec), 10 MG PO DAILY Cyclosporine (Ophth) (Restasis), 1 DROP OPB BID Docusate Sodium (Docusate Sodium), 100 MG PO BID Fluorometholone (Ophth) (Fluorometholone), 1 DROP OPB BID Gabapentin (Neurontin), 100 MG PO TID Lansoprazole (Prevacid), 30 MG PO DAILY Mometasone Furoate-Formoterol (Dulera 200/5 Mcg), 2 PUFFS INH BID Montelukast Sodium (Singulair), 10 MG PO HS Primidone (Mysoline), 100 MG PO HS Ranitidine (Zantac), 300 MG PO HS Tiotropium [place] (Spiriva Handihaler), 1 CAP INH QAM Triamcinolone Acet (Triamcinolone Acetonide), 1 APPLN TOP TID Scheduled PRN Amoxicillin & Pot Clavulanate (Augmentin 875-125 mg), 1 TAB PO BID PRN for Asthma/COPD Rescue Kit Dicyclomine Hcl (Dicyclomine Hcl), 10 MG PO TID PRN for Stomach Pain/Cramping Furosemide (Lasix), 20 MG PO QAM PRN for Fluid Retention/Weight Gain Hydroxyzine Pamoate (Vistaril), 25 MG PO Q6H PRN for Itching Ipratropium-Albuterol (Combivent Respimat), 1 PUFF INH Q4-6HRS PRN for Shortness of Breath Ipratropium-Albuterol (Duoneb), 1 TREATMENT INH QID PRN for SOB/Wheezing Polyethylene Glycol 3350 (Miralax), 17 GM PO DAILY PRN for Constipation Prednisone (Prednisone Tab), 40 MG PO UD PRN for COPD Rescue Kit Saline (Saline Nasal [place]), 1 SPRAY EDGAR Q2-4HRS PRN for Nasal Congestion Review of Systems See HPI for pertinent positives & negatives. A total of 10 systems reviewed and were otherwise negative. Physical Exam Vital Signs Date Time Temp Pulse Resp B/P Pulse Ox O2 Delivery O2 Flow Rate FiO2 07/12/16 22:01 74 18 135/83 95 Room Air 07/12/16 21:10 76 18 136/76 99 Room Air 07/12/16 19:15 84 15 166/98 96 Room Air 07/12/16 18:23 82 18 179/114 99 Room Air 07/12/16 17:04 36.6 95 18 167/95 97 Room Air General Appearance: WD/WN, no apparent distress Head: normocephalic, atraumatic Eyes: normal inspection, PERRL, EOMI, sclerae normal, + pertinent finding (+ Vertical Nystagmus ) ENT: normal ENT inspection, + pertinent finding (Positive hearing loss) Neck: supple, no JVD, trachea midline Respiratory/Chest: chest non-tender, no accessory muscle use, + decreased breath sounds, + wheezing Cardiovascular: regular rate, rhythm, no edema, no murmur Abdomen/GI: normal bowel sounds, soft, + pertinent finding (Mild LLQ tender) Back: normal inspection Extremities/Musculoskelatal: normal inspection, no pedal edema Neurologic/Psych: take off man II-XII nml as tested, no motor/sensory deficits, alert, normal mood/affect, oriented x 3, + pertinent finding (+Vertical Nystagmus) Skin: normal color, warm/dry Lymphatic: no adenopathy Diagnostics Laboratory Results Results Past 24 Hours Test 07/12/16 18:50 07/12/16 19:15 Range/Units White Blood Count 12.41 4.8-10.8 K/uL Red Blood Count 4.96 4.7-6.1 M/uL Hemoglobin 15.5 14.0-18.0 g/dL Hematocrit 45.5 42-52 % Mean Corpuscular Volume 91.7 80-100 fL Mean Corpuscular Hemoglobin 31.3 25-34 pg Mean Corpuscular Hemoglobin Concent 34.1 32-36 g/dl Platelet Count 304 130-400 K/uL Mean Platelet Volume 9.6 7.4-10.4 fL Neutrophils (%) (Auto) 82.2 % Lymphocytes (%) (Auto) 11.8 % Monocytes (%) (Auto) 4.8 % Eosinophils (%) (Auto) 0.4 % Basophils (%) (Auto) 0.4 % Neutrophils # (Auto) 10.20 1.4-6.5 K/uL Lymphocytes # (Auto) 1.47 1.2-3.4 K/uL Monocytes # (Auto) 0.59 0.11-0.59 K/uL Eosinophils # (Auto) 0.05 0-0.5 K/uL Basophils # (Auto) 0.05 0-0.2 K/uL RDW Standard Deviation 46.7 36.4-46.3 fL RDW Coefficient of Variation 13.9 11.5-14.5 % Immature Granulocyte % (Auto) 0.4 % Immature Granulocyte # (Auto) 0.05 0.00-0.02 K/uL Prothrombin Time 10.3 9.0-12.0 SECONDS Prothromb Time International Ratio 1.0 0.9-1.1 Activated Partial Thromboplast Time 27.2 21.0-31.0 SECONDS Partial Thromboplastin Ratio 1.0 Sodium Level 141 136-145 mmol/L Potassium Level 4.2 3.5-5.1 mmol/L Chloride Level 105 98-107 mmol/L Carbon Dioxide Level 29 21-32 mmol/L Anion Gap 7.0 3-11 mmol/L Blood Urea Nitrogen 10 7-18 mg/dl Creatinine 0.83 0.60-1.40 mg/dl Est Creatinine Clear Calc Drug Dose 117.1 ml/min Estimated GFR () 116.4 Estimated GFR (Non- 100.5 BUN/Creatinine Ratio 11.6 10-20 Random Glucose 134 70-99 mg/dl Calcium Level 9.6 8.5-10.1 mg/dl Magnesium Level 2.1 1.8-2.4 mg/dl Total Bilirubin 0.6 0.2-1 mg/dl Direct Bilirubin 0.1 0-0.2 mg/dl Aspartate Amino Transf (AST/SGOT) 27 15-37 U/L Alanine Aminotransferase (ALT/SGPT) 39 12-78 U/L Alkaline Phosphatase 126 45-117 U/L Total Creatine Kinase 207 39-308 U/L Creatine Kinase MB 1.9 0.5-3.6 ng/ml Creatine Kinase MB Ratio 0.9 0-3.0 Troponin I < 0.015 0-0.045 ng/ml Pro-B-Type Natriuretic Peptide 17 0-900 pg/ml Total Protein 7.3 6.4-8.2 gm/dl Albumin 3.9 3.4-5.0 gm/dl Lipase 93 73-393 U/L Thyroid Stimulating Hormone (TSH) 0.916 0.300-4.500 uIu/ml Lyme Disease IgG Antibody NEG NEG Lyme Disease IgM Antibody NEG NEG Urine Color DK YELLOW Urine Appearance CLEAR CLEAR Urine pH 8.5 4.5-7.5 Urine Specific Madeline 1.024 1.000-1.030 Urine Protein NEG NEG Urine Glucose (UA) NEG NEG Urine Ketones NEG NEG Urine Occult Blood NEG NEG Urine Nitrite NEG NEG Urine Bilirubin NEG NEG Urine Urobilinogen NEG NEG Urine Leukocyte Esterase NEG NEG Urine WBC (Auto) 1-5 0-5 /hpf Urine RBC (Auto) 0-4 0-4 /hpf Urine Hyaline Casts (Auto) 1-5 0-5 /lpf Urine Epithelial Cells (Auto) 10-20 0-5 /lpf Urine Bacteria (Auto) NEG NEG Microbiology Results 07/12/16 Urine Culture, Received Pending Diagnostic Radiology MRI Brain: 1. No acute intracranial findings. 2. Hypoplastic and opacified left mastoid air cells and left middle ear cavity which is likely chronic. MRA Brain: 1. No intracranial aneurysm or abrupt vessel cut off. 2. 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 Impression Assessment and Plan Vertigo/Vertical Nystagmus: Admit in Tele Unclear etiology MR/MRA brain: No acute pathology No focal deficits on exam Gentle IV Fluids Meclizine PRN Consult Neurology PT for William maneuvers Zofran PRN for nausea Chronic Leukocytosis: Afebrile, UA negative No obvious source of infection check CXR, KUB No signs of sepsis Abdominal Cramps: CT abd 2 weeks ago: nonspecific inflammatory bowel disease Complains of constipation Check KUB Continue stool softeners May need colonoscopy as outpatient Chronic COPD Mild wheezing bilaterally No signs of exacerbation Saturating well on room air Continue with home inhalers Duonebs Essential Tremor Stable Continue Mysoline GERD Stable Continue home meds DVT Px: SQ Lovenox CODE STATUS: Full code
[2016-07-12] MEDS ORDERED: ONDANSETRON INJ 2 MG/ML 2 ML VIAL IV PRN (23:30)
[2016-07-12] MEDS ORDERED: DICYCLOMINE HCL 10 MG CAP PO PRN (23:45)
[2016-07-12] MEDS ORDERED: POLYETHYLENE (MIRALAX) 17 GM PACK PO PRN (23:45)
[2016-07-13] VITALS (11 sets, daily range): BP systolic 115–147; BP diastolic 69–87; PULSE 63–74; TEMP 36.3–36.6; O2SAT 92–96; Ht 177.8 cm; Wt 90.9 kg
[2016-07-13] MEDS ORDERED: LORAZEPAM 2 MG/ML 1 ML VIAL IV ONE (00:30)
--- NOTE | 2016-07-13 00:43 | EMERGENCY ROOM VISIT NOTE ---
History Report prepared by Demetrio: Aroldo Gustafson Under the Supervision of: Dr. Edouard Sher M.D. First contact with patient: 18:16 Chief Complaint: DIZZY Stated Complaint: DIZZY, LIGHT HEADED, NAUSEA Nursing Triage Summary: lightheaded, dizziness, nausea and sweating, since 10 am, it is getting worse, admitted for the same thing last week History of Present Illness The patient is a 55 year old male who presents to the Emergency Room with complaints of worsening dizziness beginning eight and a half hours prior to arrival. He describes the dizziness as spinning. The patient associates lightheadedness, nausea, chills, diaphoresis, and neck pain with today's symptoms. He notes his symptoms worsen with movement and alleviated with closing his eyes. The patient states he has experienced intermittent dizziness for over a year, in which, he was admitted overnight last Friday for similar symptoms. He notes his symptoms have not completely resolved since being discharged. The aptient states he has brought up his dizziness to his respiratory therapist, neurologist, and PCP but does not know the cause. 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 The patient denies taking medication for vertigo. Pt denies LOC, headache, fevers, visual changes, chest pain, breathing difficulties, vomiting, abdominal pain, back pain, melena, hematochezia, urinary symptoms, numbness, weakness, lymphadenopathy, rash, or other complaints. 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 Review of Systems See HPI for pertinent positives and negatives. A total of ten systems were reviewed and were otherwise negative. Past Medical & Surgical Medical Problems: (1) Acid reflux (2) Asthma (3) Asthma exacerbation (4) Hypoxia (5) Vertigo Family History Diabetes mellitus Gallbladder disease Heart disease Hypertension Kidney disease Kidney stones Seizures Social History Smoking Status: Former Smoker Alcohol Use: other Marital Status: single Housing Status: lives alone Occupation Status: employed Current/Historical Medications Scheduled Aspirin (Aspirin 81), 81 MG PO QAM Azelastine Hcl (Astepro), 2 SPRY EDGAR BID Cetirizine Hcl (Zyrtec), 10 MG PO DAILY Cyclosporine (Ophth) (Restasis), 1 DROP OPB BID Docusate Sodium (Docusate Sodium), 100 MG PO BID Fluorometholone (Ophth) (Fluorometholone), 1 DROP OPB BID Gabapentin (Neurontin), 100 MG PO TID Lansoprazole (Prevacid), 30 MG PO DAILY Mometasone Furoate-Formoterol (Dulera 200/5 Mcg), 2 PUFFS INH BID Montelukast Sodium (Singulair), 10 MG PO HS Primidone (Mysoline), 100 MG PO HS Ranitidine (Zantac), 300 MG PO HS Tiotropium [place] (Spiriva Handihaler), 1 CAP INH QAM Triamcinolone Acet (Triamcinolone Acetonide), 1 APPLN TOP TID Scheduled PRN Amoxicillin & Pot Clavulanate (Augmentin 875-125 mg), 1 TAB PO BID PRN for Asthma/COPD Rescue Kit Dicyclomine Hcl (Dicyclomine Hcl), 10 MG PO TID PRN for Stomach Pain/Cramping Furosemide (Lasix), 20 MG PO QAM PRN for Fluid Retention/Weight Gain Hydroxyzine Pamoate (Vistaril), 25 MG PO Q6H PRN for Itching Ipratropium-Albuterol (Combivent Respimat), 1 PUFF INH Q4-6HRS PRN for Shortness of Breath Ipratropium-Albuterol (Duoneb), 1 TREATMENT INH QID PRN for SOB/Wheezing Polyethylene Glycol 3350 (Miralax), 17 GM PO DAILY PRN for Constipation Prednisone (Prednisone Tab), 40 MG PO UD PRN for COPD Rescue Kit Saline (Saline Nasal [place]), 1 SPRAY EDGAR Q2-4HRS PRN for Nasal Congestion Allergies Coded Allergies: No Known Allergies (Unverified , 07/02/16) Physical Exam Vital Signs Date Time Temp Pulse Resp B/P Pulse Ox O2 Delivery O2 Flow Rate FiO2 07/12/16 22:01 74 18 135/83 95 Room Air 07/12/16 21:10 76 18 136/76 99 Room Air 07/12/16 19:15 84 15 166/98 96 Room Air 07/12/16 18:23 82 18 179/114 99 Room Air 07/12/16 17:04 36.6 95 18 167/95 97 Room Air Physical Exam GENERAL: Awake, alert, well appearing, no distress HENT: Normocephalic, atraumatic. TM's normal. Oropharynx unremarkable. EYES: PERRL. EOMI. Normal conjunctiva. Sclera non-icteric. NECK: Supple. No nuchal rigidity. FROM. No JVD or bruit. RESPIRATORY: CTA CARDIAC: RRR. No murmur. ABDOMEN: Soft, non distended. No tenderness to palpation. No rebound or guarding. No masses. RECTAL: Deferred. MUSCULOSKELETAL: Unremarkable. No edema. No discoloration. Gross motor strength symmetric. NEURO: Vertical nystagmus noted. Cranial nerves 2-12 grossly intact. Normal sensorium. No sensory or motor deficits noted. Speech normal. No pronator drift. SKIN: No rash or jaundice noted. LYMPH: No adenopathy. Medical Decision & Procedures ER Provider Diagnostic Interpretation: MRI: Radiology results as stated below per my review and radiologist interpretation MRA: Radiology results as stated below per my review and radiologist interpretation MRI OF THE BRAIN WITHOUT CONTRAST CLINICAL HISTORY: Severe dizziness. Lightheadedness. COMPARISON STUDY: Head CT July 02, 2016. TECHNIQUE: Utilizing a 1.5 Xiao magnet and dedicated coil, multiplanar, multiecho imaging of the brain was performed without IV contrast. FINDINGS: There are no areas of restricted diffusion. No acute intracranial hemorrhage, midline shift or mass effect is present. Brain volume is normal for age. Ventricular system is normal. Basilar cisterns are patent. There are no extra-axial collections. Flow-voids for the major intracranial vessels are present. No intracranial masses are identified on this unenhanced examination. There is mild mucosal thickening of the sinuses. The left mastoid air cells are hypoplastic. There is opacified left mastoid air cells as well as the left middle ear. This is similar to a CT of May 24, 2013. This is likely chronic. IMPRESSION: 1. No acute intracranial findings. 2. Hypoplastic and opacified left mastoid air cells and left middle ear cavity which is likely chronic. Electronically signed by: Haroon Elias M.D. 07/12/2016 8:02 PM MRA OF THE INTRACRANIAL CIRCULATION WITHOUT CONTRAST CLINICAL HISTORY: Severe dizziness, vertigo COMPARISON STUDY: None. TECHNIQUE: Utilizing a 1.5 Xiao magnet and 3-D [id number] technique, unenhanced MRA of the intracranial circulation was obtained. FINDINGS: The bilateral M1, M2, A1 and A2 segments are patent. There is no intracranial aneurysm or abrupt vessel cut off. 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 The posterior circulation is intact. IMPRESSION: 1. No intracranial aneurysm or abrupt vessel cut off. 2. 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 Electronically signed by: Haroon Elias M.D. 07/12/2016 8:04 PM Laboratory Results 07/12/16 18:50 Red Blood Count 4.96, Mean Corpuscular Volume 91.7, Mean Corpuscular Hemoglobin 31.3, Mean Corpuscular Hemoglobin Concent 34.1, Mean Platelet Volume 9.6, Neutrophils (%) (Auto) 82.2, Lymphocytes (%) (Auto) 11.8, Monocytes (%) (Auto) 4.8, Eosinophils (%) (Auto) 0.4, Basophils (%) (Auto) 0.4, Neutrophils # (Auto) 10.20, Lymphocytes # (Auto) 1.47, Monocytes # (Auto) 0.59, Eosinophils # (Auto) 0.05, Basophils # (Auto) 0.05 07/12/16 18:50 Test 07/12/16 18:50 07/12/16 19:15 White Blood Count 12.41 K/uL (4.8-10.8) Red Blood Count 4.96 M/uL (4.7-6.1) Hemoglobin 15.5 g/dL (14.0-18.0) Hematocrit 45.5 % (42-52) Mean Corpuscular Volume 91.7 fL (80-100) Mean Corpuscular Hemoglobin 31.3 pg (25-34) Mean Corpuscular Hemoglobin Concent 34.1 g/dl (32-36) Platelet Count 304 K/uL (130-400) Mean Platelet Volume 9.6 fL (7.4-10.4) Neutrophils (%) (Auto) 82.2 % Lymphocytes (%) (Auto) 11.8 % Monocytes (%) (Auto) 4.8 % Eosinophils (%) (Auto) 0.4 % Basophils (%) (Auto) 0.4 % Neutrophils # (Auto) 10.20 K/uL (1.4-6.5) Lymphocytes # (Auto) 1.47 K/uL (1.2-3.4) Monocytes # (Auto) 0.59 K/uL (0.11-0.59) Eosinophils # (Auto) 0.05 K/uL (0-0.5) Basophils # (Auto) 0.05 K/uL (0-0.2) RDW Standard Deviation 46.7 fL (36.4-46.3) RDW Coefficient of Variation 13.9 % (11.5-14.5) Immature Granulocyte % (Auto) 0.4 % Immature Granulocyte # (Auto) 0.05 K/uL (0.00-0.02) Prothrombin Time 10.3 SECONDS (9.0-12.0) Prothromb Time International Ratio 1.0 (0.9-1.1) Activated Partial Thromboplast Time 27.2 SECONDS (21.0-31.0) Partial Thromboplastin Ratio 1.0 Anion Gap 7.0 mmol/L (3-11) Est Creatinine Clear Calc Drug Dose 117.1 ml/min Estimated GFR () 116.4 Estimated GFR (Non- 100.5 BUN/Creatinine Ratio 11.6 (10-20) Calcium Level 9.6 mg/dl (8.5-10.1) Magnesium Level 2.1 mg/dl (1.8-2.4) Total Bilirubin 0.6 mg/dl (0.2-1) Direct Bilirubin 0.1 mg/dl (0-0.2) Aspartate Amino Transf (AST/SGOT) 27 U/L (15-37) Alanine Aminotransferase (ALT/SGPT) 39 U/L (12-78) Alkaline Phosphatase 126 U/L (45-117) Total Creatine Kinase 207 U/L (39-308) Creatine Kinase MB 1.9 ng/ml (0.5-3.6) Creatine Kinase MB Ratio 0.9 (0-3.0) Troponin I < 0.015 ng/ml (0-0.045) Pro-B-Type Natriuretic Peptide 17 pg/ml (0-900) Total Protein 7.3 gm/dl (6.4-8.2) Albumin 3.9 gm/dl (3.4-5.0) Lipase 93 U/L (73-393) Thyroid Stimulating Hormone (TSH) 0.916 uIu/ml (0.300-4.500) Lyme Disease IgG Antibody NEG (NEG) Lyme Disease IgM Antibody NEG (NEG) Urine Color DK YELLOW Urine Appearance CLEAR (CLEAR) Urine pH 8.5 (4.5-7.5) Urine Specific [place] 1.024 (1.000-1.030) Urine Protein NEG (NEG) Urine Glucose (UA) NEG (NEG) Urine Ketones NEG (NEG) Urine Occult Blood NEG (NEG) Urine Nitrite NEG (NEG) Urine Bilirubin NEG (NEG) Urine Urobilinogen NEG (NEG) Urine Leukocyte Esterase NEG (NEG) Urine WBC (Auto) 1-5 /hpf (0-5) Urine RBC (Auto) 0-4 /hpf (0-4) Urine Hyaline Casts (Auto) 1-5 /lpf (0-5) Urine Epithelial Cells (Auto) 10-20 /lpf (0-5) Urine Bacteria (Auto) NEG (NEG) Laboratory results reviewed by me Medications Administered Medications (Trade) Dose Ordered Sig/Ericka Route Start Time Stop Time Status Last Admin Dose Admin Sodium Chloride (Nss 1000ml) 1,000 ml @ 125 mls/hr Q8H STAT IV 07/12/16 18:17 07/13/16 00:21 DC 07/12/16 18:17 125 MLS/HR Ondansetron HCl (Zofran 8mg Iv) 8 mg NOW STAT IV 07/12/16 18:28 07/12/16 18:31 DC 07/12/16 19:09 8 MG Diazepam (Valium Inj) 5 mg NOW STAT IV 07/12/16 18:28 07/12/16 18:31 DC 07/12/16 19:09 5 MG Diazepam (Valium Inj) 5 mg NOW STAT IV 07/12/16 21:47 07/12/16 21:48 DC 07/12/16 21:59 5 MG ECG Indication: other (dizziness) Rate (beats per minute): 83 Rhythm: sinus rhythm Findings: PVC, no acute ischemic change, other (normal intervals) ED Course 1816: Ordered Sodium Chloride 1,000 ml @ 125 mls/hr IV. 1823: The patient was evaluated in room A9B. A complete history and physical exam was performed. 1827: Ordered Valium 5 mg IV, Ondansetron HCl 8 mg IV. 2142: Reevaluated the patient at this time, and he is still very symptomatic. 2146: Ordered Valium Inj 5 mg IV. 2239: I spoke to Jose Victoria (Hospitalist) about the patient's case, and he will follow the patient for further evaluation. Medical Decision Prior records/ancillary studies reviewed. Triage Nursing notes reviewed and agree them. The patient's history was concerning for dizziness. Differential diagnosis: Etiologies such as benign positional vertigo, tumor, infection, hypoglycemia, electrolyte abnormalities, cardiac sources, intracerebral event, toxicologic, neurologic, as well as others were entertained. Physical examination: As above. Vertical nystagmus noted. ER treatment provided: IV hydration over one hour Zofran and Valium 5 mg On reassessment the patient was still dizzy IV Valium 5 mg was given again Diagnostics interpretation by me: ECG: Normal sinus rhythm without ischemic change or evidence of dysrhythmia. The labs revealed a normal CBC and chemistry panel except for mild leukocytosis which is consistent with prior values. Urinalysis unremarkable. Magnesium and cardiac markers negative. BNP negative. Lyme titer negative as as well as TSH. Imaging: MRI and MRA as above The patient has some vertical nystagmus and intractable vertigo. No ischemia or significant structural problem was seen to account for the cause. He will need further treatment in the hospital as patient does not feel well and family states he is not doing well at home. Consultation: A consultation was placed with the hospitalist. The case was discussed and diagnostics were reviewed. The patient was evaluated in the ER for further treatment. The chart was completed utilizing [employer] Speech voice recognition software. Grammatical errors, random word insertions, pronoun errors, and incomplete sentences are an occasional consequence of this system due to software limitations, ambient noise, and hardware issues. Any formal questions or concerns about the content, text, or information contained within the body of this dictation should be directly addressed to the physician for clarification. Consults Time Called: 2233 Consulting Physician: Jose Victoria (Hospitalist) Returned Call: 2239 I spoke to Jose Victoria (Hospitalist) about the patient's case, and he will follow the patient for further evaluation. Impression Primary Impression: Dizziness Additional Impression: Vertigo Scribe Attestation The scribe's documentation has been prepared under my direction and personally reviewed by me in its entirety. I confirm that the note above accurately reflects all work, treatment, procedures, and medical decision making performed by me. Departure Information Dispostion Being Evaluated By Hospitalist (Dr. Mobley [facility] (Hospitalist)) Referrals Gale Walls M.D. (MEDICAL) (PCP) Problem Qualifiers
[2016-07-13] MEDS: SODIUM CHLORIDE 0.9% 1000ML 1,000 ML IV SCH ×2 (00:57→19:38)
[2016-07-13] MEDS ORDERED: IV FLUIDS COMPLETED PRN (02:00)
[2016-07-13] MEDS: ALBUT/IPRATROP 3MG/0.5MG NEB 3 ML VIAL INH SCH ×4 (07:50→19:01)
[2016-07-13 07:54] LABS: BASO % 0.4 %; BASO ABS # 0.03 K/uL (0-0.2); COMPLETE YES; EOS % 0.9 %; IG% 0.1 %; LYMPH ABS # 1.52 K/uL (1.2-3.4); MEAN CELL VOLUME 92.2 fL (80-100); MEAN CORPUSCULAR HEMOGLOBIN 31.9 pg (25-34); MEAN CORPUSCULAR HGB CONC 34.5 g/dl (32-36); MEAN PLATELET VOLUME 9.7 fL (7.4-10.4); MONO % 4.3 %; NEUT % 76.3 %; PLATELET COUNT 287 K/uL (130-400); RED BLOOD COUNT 4.77 M/uL (4.7-6.1); WHITE BLOOD COUNT 8.45 K/uL (4.8-10.8)
[2016-07-13 08:22] LABS: BUN/CREATININE RATIO 14.1 (10-20); CREATININE 0.68 mg/dl (0.60-1.40); POTASSIUM 4.2 mmol/L (3.5-5.1)
--- NOTE | 2016-07-13 08:25 | DIAGNOSTIC IMAGING REPORT ---
KUB HISTORY: Generalized Abdominal pain COMPARISON: Abdomen and pelvis CT 05/24/2013. FINDINGS: The bowel gas pattern is unremarkable. There are no dilated loops of small bowel to suggest an obstruction. No renal calculi. No ureteral calculi. No pneumoperitoneum or pneumatosis. IMPRESSION: No evidence for bowel obstruction. Electronically signed by: Kevin Appiah M.D. 07/13/2016 8:24 AM Dictated Date/Time: 07/13/2016 8:23 AM
--- NOTE | 2016-07-13 08:27 | DIAGNOSTIC IMAGING REPORT ---
CHEST 1 VW FRONT-NOT PORTABLE HISTORY: Wheezing. Short of breath. COMPARISON: Chest 08/20/2013. FINDINGS: The lungs are clear. Cardiac silhouette is normal in size. No pleural effusions. No pneumothorax. IMPRESSION: No acute process. Electronically signed by: Kevin Appiah M.D. 07/13/2016 8:25 AM Dictated Date/Time: 07/13/2016 8:24 AM
[2016-07-13] MEDS: ENOXAPARIN 40 MG/0.4 ML SYR SC SCH (08:45)
[2016-07-13] MEDS: ASPIRIN 81 MG ECTAB PO SCH (08:46)
[2016-07-13] MEDS: DOCUSATE SODIUM 100 MG CAP PO SCH ×2 (08:46→19:41)
[2016-07-13] MEDS: MECLIZINE HCL 25 MG TAB PO PRN ×2 (08:47→17:50)
[2016-07-13] MEDS: PANTOprazole SOD 40 MG TAB PO SCH (08:48)
[2016-07-13] MEDS: CETIRIZINE HCL 10 MG TAB PO SCH (08:48)
[2016-07-13] MEDS: GABAPENTIN 100 MG CAP PO SCH ×3 (08:48→19:41)
[2016-07-13] MEDS: ACETAMINOPHEN 325 MG TAB PO PRN ×2 (08:49→18:47)
[2016-07-13 08:53] LABS: CALCIUM 9.4 mg/dl (8.5-10.1)
--- NOTE | 2016-07-13 14:53 | Progress Note ---
Subjective Date of Service: Jul 13, 2016. Subjective Pt evaluation today including: conversation w/ patient, physical exam, lab review, review of studies, review of inpatient medication list Saw/examined the patient in room 289 Presented with dizziness/lightheadedness Was here last week with similar symptoms and was discharged after being diagnosed with a viral infection States that the dizziness recurred and that's what brought him to the ER Associated symptom of nausea States he wants to get up to see how he is doing Problem List Medical Problems: (1) Dizziness Status: Acute (2) Vertigo Status: Acute (3) Vertigo Status: Chronic (4) Vomiting Status: Acute Review of Systems Constitutional: No chills, No fever, No weakness ENT: + problem reported (headache) Respiratory: No shortness of breath Cardiac: No chest pain Abdomen: + nausea, No diarrhea, No pain, No vomiting Musculoskeletal: No joint pain Neurologic: + balance problems, + vertigo, No numbness/tingling, No weakness Medications Current Inpatient Medications Medications (Trade) Dose Ordered Sig/Ericka Route Start Time Stop Time Status Last Admin Dose Admin Enoxaparin Sodium 40 mg 40 mg Q24H SC 07/13/16 08:00 08/12/16 07:59 07/13/16 08:45 40 MG Sodium Chloride (Nss 1000ml) 1,000 ml @ 50 mls/hr Q20H IV 07/12/16 23:18 08/11/16 23:17 07/13/16 00:57 50 MLS/HR Acetaminophen (Tylenol Tab) 650 mg Q4H PRN PO 07/12/16 23:30 08/11/16 23:29 07/13/16 08:49 650 MG Ondansetron HCl (Zofran Inj) 4 mg Q6H PRN IV 07/12/16 23:30 08/11/16 23:29 Meclizine HCl (Antivert Tab) 25 mg TID PRN PO 07/12/16 23:30 08/11/16 23:29 07/13/16 08:47 25 MG Albuterol/ Ipratropium (Duoneb) 3 ml QIDR INH 07/13/16 08:00 08/12/16 07:59 07/13/16 11:19 3 ML Aspirin (Ecotrin Tab) 81 mg QAM PO 07/13/16 09:00 08/12/16 08:59 07/13/16 08:46 81 MG Cetirizine HCl (zyrTEC TAB) 10 mg DAILY PO 07/13/16 09:00 08/12/16 08:59 07/13/16 08:48 10 MG Dicyclomine HCl (Bentyl Cap) 10 mg TID PRN PO 07/12/16 23:45 08/11/16 23:44 Docusate Sodium (coLACE CAP) 100 mg BID PO 07/13/16 09:00 08/12/16 08:59 07/13/16 08:46 100 MG Gabapentin (Neurontin Cap) 100 mg TID PO 07/13/16 09:00 08/12/16 08:59 07/13/16 08:48 100 MG Montelukast Sodium (Singulair Tab) 10 mg HS PO 07/13/16 21:00 08/12/16 20:59 Primidone (Mysoline Tab) 100 mg HS PO 07/13/16 21:00 08/12/16 20:59 Miscellaneous Information (Order Awaiting Action) 1 ea QS N/A 07/13/16 08:00 08/12/16 07:59 Miscellaneous Information (Order Awaiting Action) 1 ea QS N/A 07/13/16 08:00 08/12/16 07:59 Miscellaneous Information (Order Awaiting Action) 1 ea QS N/A 07/13/16 08:00 08/12/16 07:59 Pantoprazole Sodium (Protonix Tab) 40 mg DAILY PO 07/13/16 09:00 08/12/16 08:59 07/13/16 08:48 40 MG Miscellaneous Information (Order Awaiting Action) 1 ea QS N/A 07/13/16 08:00 08/12/16 07:59 Polyethylene (Miralax Powder Packet) 17 gm DAILY PRN PO 07/12/16 23:45 08/11/16 23:44 Ranitidine HCl (zANTac TAB) 300 mg HS PO 07/13/16 21:00 08/12/16 20:59 Miscellaneous (Iv Fluids Completed) 1 ea PRN PRN N/A 07/13/16 02:00 07/13/17 01:59 Objective Vital Signs Date Time Temp Pulse Resp B/P Pulse Ox O2 Delivery O2 Flow Rate FiO2 07/13/16 11:40 73 18 118/70 07/13/16 11:19 71 18 96 Room Air 07/13/16 08:00 94 Room Air 07/13/16 07:50 71 18 94 Room Air 07/13/16 07:31 36.6 64 18 115/71 93 Room Air 07/13/16 04:06 36.4 63 20 118/72 93 Room Air 07/13/16 04:00 Room Air 07/13/16 00:30 36.4 63 16 119/69 93 Room Air 07/12/16 22:01 74 18 135/83 95 Room Air 07/12/16 21:10 76 18 136/76 99 Room Air 07/12/16 19:15 84 15 166/98 96 Room Air 07/12/16 18:23 82 18 179/114 99 Room Air 07/12/16 17:04 36.6 95 18 167/95 97 Room Air Physical Exam General Appearance: + mild distress (secondary to nausea and dizziness) Respiratory/Chest: lungs clear, normal breath sounds, no respiratory distress, no accessory muscle use Cardiovascular: regular rate, rhythm, no edema, no murmur Extremities: normal inspection, no pedal edema 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, no motor/sensory deficits, alert, normal mood/affect, oriented x 3, + pertinent finding (tremor at baseline ) Laboratory Results Last 24 Hours Test 07/12/16 18:50 07/12/16 19:15 07/13/16 07:31 White Blood Count 12.41 K/uL 8.45 K/uL Red Blood Count 4.96 M/uL 4.77 M/uL Hemoglobin 15.5 g/dL 15.2 g/dL Hematocrit 45.5 % 44.0 % Mean Corpuscular Volume 91.7 fL 92.2 fL Mean Corpuscular Hemoglobin 31.3 pg 31.9 pg Mean Corpuscular Hemoglobin Concent 34.1 g/dl 34.5 g/dl Platelet Count 304 K/uL 287 K/uL Mean Platelet Volume 9.6 fL 9.7 fL Neutrophils (%) (Auto) 82.2 % 76.3 % Lymphocytes (%) (Auto) 11.8 % 18.0 % Monocytes (%) (Auto) 4.8 % 4.3 % Eosinophils (%) (Auto) 0.4 % 0.9 % Basophils (%) (Auto) 0.4 % 0.4 % Neutrophils # (Auto) 10.20 K/uL 6.45 K/uL Lymphocytes # (Auto) 1.47 K/uL 1.52 K/uL Monocytes # (Auto) 0.59 K/uL 0.36 K/uL Eosinophils # (Auto) 0.05 K/uL 0.08 K/uL Basophils # (Auto) 0.05 K/uL 0.03 K/uL RDW Standard Deviation 46.7 fL 47.6 fL RDW Coefficient of Variation 13.9 % 14.0 % Immature Granulocyte % (Auto) 0.4 % 0.1 % Immature Granulocyte # (Auto) 0.05 K/uL 0.01 K/uL Prothrombin Time 10.3 SECONDS Prothromb Time International Ratio 1.0 Activated Partial Thromboplast Time 27.2 SECONDS Partial Thromboplastin Ratio 1.0 Sodium Level 141 mmol/L 139 mmol/L Potassium Level 4.2 mmol/L 4.2 mmol/L Chloride Level 105 mmol/L 104 mmol/L Carbon Dioxide Level 29 mmol/L 30 mmol/L Anion Gap 7.0 mmol/L 5.0 mmol/L Blood Urea Nitrogen 10 mg/dl 10 mg/dl Creatinine 0.83 mg/dl 0.68 mg/dl Est Creatinine Clear Calc Drug Dose 117.1 ml/min 141.5 ml/min Estimated GFR () 116.4 126.4 Estimated GFR (Non- 100.5 109.0 BUN/Creatinine Ratio 11.6 14.1 Random Glucose 134 mg/dl 115 mg/dl Calcium Level 9.6 mg/dl 9.4 mg/dl Magnesium Level 2.1 mg/dl Total Bilirubin 0.6 mg/dl Direct Bilirubin 0.1 mg/dl Aspartate Amino Transf (AST/SGOT) 27 U/L Alanine Aminotransferase (ALT/SGPT) 39 U/L Alkaline Phosphatase 126 U/L Total Creatine Kinase 207 U/L Creatine Kinase MB 1.9 ng/ml Creatine Kinase MB Ratio 0.9 Troponin I < 0.015 ng/ml Pro-B-Type Natriuretic Peptide 17 pg/ml Total Protein 7.3 gm/dl Albumin 3.9 gm/dl Lipase 93 U/L Thyroid Stimulating Hormone (TSH) 0.916 uIu/ml Lyme Disease IgG Antibody NEG Lyme Disease IgM Antibody NEG Urine Color DK YELLOW Urine Appearance CLEAR Urine pH 8.5 Urine Specific [place] 1.024 Urine Protein NEG Urine Glucose (UA) NEG Urine Ketones NEG Urine Occult Blood NEG Urine Nitrite NEG Urine Bilirubin NEG Urine Urobilinogen NEG Urine Leukocyte Esterase NEG Urine WBC (Auto) 1-5 /hpf Urine RBC (Auto) 0-4 /hpf Urine Hyaline Casts (Auto) 1-5 /lpf Urine Epithelial Cells (Auto) 10-20 /lpf Urine Bacteria (Auto) NEG Assessment and Plan This is a 55 year old male with PMH of essential tremor, cholesteatoma of left ear, COPD, hyperlipidemia, with recent admission due to viral gastroenteritis and possible vertigo presents with dizziness BPPV patient presents with clinical symptoms of vertigo Head CT and Brain MRI performed - ruled out acute process likely related to positional vertigo Meclizine, Zofran PRN PT for William ambulate in hallways neurology consultation due to multiple episodes of vertigo COPD not in exacerbation continue home inhalers Recent Viral Gastroenteritis with some abdominal tenderness during admission no tenderness currently KUB with no acute findings IVFs and monitor Essential Tremor at baseline Continue Mysoline DVT ppx Lovenox FULL CODE
[2016-07-13] MEDS ORDERED: NURSING VERBAL MED ORDER ONE ×2 (17:15→20:15)
[2016-07-13] MEDS: SODIUM CHLORIDE 0.65% NA SOLN 45 ML (OCEAN) PRN (18:27)
[2016-07-13] MEDS ORDERED: DIAZEPAM 2MG TAB PO ONE (18:45)
[2016-07-13] MEDS ORDERED: DIAZEPAM 2MG TAB PO PRN (20:30)
[2016-07-13] MEDS ORDERED: MONTELUKAST SOD 10 MG TAB PO SCH (21:00)
[2016-07-13] MEDS ORDERED: PRIMIDONE 50 MG TAB PO SCH (21:00)
[2016-07-13] MEDS ORDERED: RANITIDINE HCL 150 MG TAB PO SCH (21:00)
[2016-07-14 04:38] VITALS: BP 112/66; PULSE 64; TEMP 36.4; O2SAT 92
[2016-07-14 07:15] VITALS: PULSE 71; O2SAT 93
[2016-07-14] MEDS: ALBUT/IPRATROP 3MG/0.5MG NEB 3 ML VIAL INH SCH ×2 (07:15→11:20)
[2016-07-14 07:17] LABS: HEMATOCRIT 40.4 % (42-52); MEAN CELL VOLUME 92.9 fL (80-100); MEAN CORPUSCULAR HEMOGLOBIN 31.5 pg (25-34); MEAN CORPUSCULAR HGB CONC 33.9 g/dl (32-36); MEAN PLATELET VOLUME 9.6 fL (7.4-10.4); PLATELET COUNT 278 K/uL (130-400); RED BLOOD COUNT 4.35 M/uL (4.7-6.1); WHITE BLOOD COUNT 7.72 K/uL (4.8-10.8)
--- NOTE | 2016-07-14 07:20 | PROGRESS NOTE ---
DATE: 07/13/2016 CONSULTATION FOR: Isaiah Brandt DO HISTORY OF PRESENT ILLNESS: Carlos is 55 years old, lives in [place], is known to Dr. 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 He is a former tobacco user, has gastroesophageal reflux and also has a history of a right jugular foramen meningioma followed carefully in [place] by Dr. Bro of neurology, who has also been seeing him for headaches and essential tremor, but over the past 2 years has really not been able to provide any consistent therapeutic regimen to treat the head pain and he is being referred to Tamiko Aleman the headache expert at [facility] and has an appointment to see her in September. Unfortunately, patient does not recall many medications were used for his headaches. He is seeing Dr. Bro as well for the essential tremor and is on Mysoline for this with pretty good control. He was recently started on some Neurontin by his primary care physician for pruritus, is on low dose but this has had some salutary effect on his headaches, and is unclear as to whether it is adding to tremor control. He has some chronic obstructive airways disease, some chronic hypoxia and has been admitted to this hospital at least twice now with abdominal cramping, constipation and now increasingly severe vertigo. Neurology is being consulted to assess the vertigo. He has seen ENT in [place] in the past regarding his sensorineural hearing loss and is due to actually have an appointment with them for followup of this, but apparently has never complained of vertigo prior to February. In this regard, I believe he has spoken to his primary care physician about the vertigo and meclizine was offered, but I am not sure he ever really took it. Other problems include asthma and acid reflux. He has had back surgery in the past with fairly good results. FAMILY HISTORY: Reveals diabetes, gallbladder disease, heart disease, hypertension, kidney disease, kidney stones, seizure disorder, breast cancer and bladder cancer. SOCIAL HISTORY: Reveals him to be a former smoker. He does not consume ethanol. He does not use ethanol. He is unemployed and he is single. IMMUNIZATIONS: Up-to-date. There is no history of MRSA or other drug resistant organisms. ALLERGIES: He has no coated drug allergies. MEDICATIONS AT HOME: Include aspirin 81 mg, Astepro, cetirizine, cyclosporine ointment, docusate, gabapentin 100 mg t.i.d., Prevacid, mometasone, Singulair, primidone 100 mg tablet at bedtime, ranitidine, Tiotropium bromide, triamcinolone. As needed medications include amoxicillin, dicyclomine, furosemide, hydroxyzine, Combivent, DuoNeb, polyethylene glycol, prednisone as needed for asthma rescue, and saline as needed for nasal congestion. REVIEW OF SYSTEMS: Since last time reveals no systemic issues such as fevers, sweats or chills. He does have the vertigo. He does have some oscillopsia. Vertigo occurs episodically, sometimes of short duration, sometimes long duration. He does have the chronic sensorineural hearing loss since . He has had no problems with speech or swallowing. He does have subjective oscillopsia at times when the vertigo is severe. He does have the chronic asthma issues, no real exacerbation recently. He has had no cardiovascular issues to my knowledge. He does have the constipation and abdominal pain which has prompted the last admission to some degree this one, for which he has been seeing gastroenterology. He does have back issues but no chronic musculoskeletal pain and neurologically he has a tremor, the vertigo, the hearing loss; the latter 2 issues may not be truly neurologic but may reside more with ear, nose and throat. He does have essential tremor. PHYSICAL EXAMINATION: VITAL SIGNS: On admission, his blood pressure was 135/83, pulse was 74, respirations were 18. GENERAL: He was awake, alert, oriented in 3 spheres. He was in no obvious distress. He was not obese or particularly thin. HEENT: Unremarkable, although the ____ talked about some vertical nystagmus. Hallpike maneuvers were apparently negative for inducing vertigo on admission. NECK: Supple. No bruits were heard. LUNGS: Clear. HEART: Had a regular rhythm. ABDOMEN: Soft and nontender, but there was some question of left lower quadrant tenderness on deep palpation. BACK: Free of abnormalities other than surgical scarring. EXTREMITIES: Free of edema. NEUROLOGIC: Today neurologically he is awake, alert, oriented. He talks about a little head pain. He has no vertigo. He can move his head from side to side. He has clear speech. Eye movements are normal. I do not see any nystagmus today. Ocular fundi are poorly seen because of a lot of blepharospasm. Visual dodge are grossly intact. Facial motility and strength is normal. Facial sensation is normal. Oropharyngeal and lingual movements are normal. Tongue is midline. He has no cerebellar dysmetria on [id number] and [id number]-[id number] testing. I did not get him up to test gait, but he can move freely in the bed. I did head rolling maneuvers both [id number] and [id number], and could not induce any vertigo. He has no drift or pronation sign. I am unimpressed with any significant tremor today. Reflexes are 1+ symmetrical. Toes are downgoing. No Geovany signs are seen. Muscle strength testing is normal. Sensation intact to vibration, light touch and temperature. IMAGING STUDIES: Done without contrast unfortunately do not show evidence for the previously described jugular mass, but meningioma would require contrast to be ____ and there is a lesion in the mastoid area apparently moving in the middle ear that is probably consistent with the previously described cholesteatoma. 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 He has been placed on meclizine and perhaps this is the reason his vertigo has responded, although it is hard to get a feel for this man in terms of his response to medications over the past years. At this point, I think this is vertigo, probably related to the cholesteatoma and left middle ear issue and probably would be better addressed by ear, nose and throat. He does have an appointment coming up apparently in [place] and I would recommend continuing the meclizine at this point to see if a sustained dose of this will be tolerated and whether it will be effective. William maneuver is being scheduled but the story really does not sound like positional vertigo. This will do no harm. In terms of the headaches, he relates a history of prior severe probable migraine headaches of episodic type without aura in the past and recurrence of headaches of similar type with increasing severity and frequency for the past several years, beginning about 3 years ago when he was admitted with respiratory failure. Apparently these have not responded to standard headache management, although it is not clear by the chart what drugs have been used. He does have an appointment with Tamiko Aleman in September and at this point I certainly would not add much to his drug regimen other than perhaps considering increasing the Neurontin a bit, which he is on already for some pruritus. Sometimes Neurontin will help headaches, but it would not be my first line drug. Normally I will try him on some tricyclic antidepressants or Topamax, but with his current GI issues with constipation, the anticholinergic effects of the former probably not byrd and I do not want to muddy the keller with Topamax effects in its production of paresthesias and potential cognitive impairment as I will not be following up on his case and this is one agent in which follow up is often required. It might actually help his tremor to some degree and might have been tried in the past by Dr Bro but the records are abit vague and his recall is poor. These decisions are going to be resting with the physicians in [place] who regularly follow him and I will be happy to look at him while he is in the hospital, but he does not need a routine follow up here in [place] by neurology. I will check with him tomorrow. For now, I have no other suggestions other than continue the meclizine and see how he does along with a potential of increasing Neurontin to 200 mg 3 times a day in hopes that this may help his headache and may actually help his tremor to some degree. ALONZO
[2016-07-14 07:33] VITALS: BP 104/69; PULSE 64; TEMP 36.6; O2SAT 93
[2016-07-14 07:48] LABS: BUN/CREATININE RATIO 19.2 (10-20); CALCIUM 8.5 mg/dl (8.5-10.1); CREATININE 0.7 mg/dl (0.60-1.40); POTASSIUM 3.7 mmol/L (3.5-5.1)
[2016-07-14] MEDS: ENOXAPARIN 40 MG/0.4 ML SYR SC SCH (08:11)
[2016-07-14] MEDS: GABAPENTIN 100 MG CAP PO SCH ×2 (08:12→13:46)
[2016-07-14] MEDS: CETIRIZINE HCL 10 MG TAB PO SCH (08:13)
[2016-07-14] MEDS: DOCUSATE SODIUM 100 MG CAP PO SCH (08:13)
[2016-07-14] MEDS: PANTOprazole SOD 40 MG TAB PO SCH (08:13)
[2016-07-14] MEDS: ASPIRIN 81 MG ECTAB PO SCH (08:13)
[2016-07-14] MEDS: SODIUM CHLORIDE 0.65% NA SOLN 45 ML (OCEAN) PRN (08:15)
[2016-07-14] MEDS: MECLIZINE HCL 25 MG TAB PO PRN (09:26)
--- NOTE | 2016-07-14 10:23 | Progress Note ---
Subjective Date of Service: Jul 14, 2016. Subjective Pt evaluation today including: conversation w/ patient, physical exam, lab review, review of studies, review of inpatient medication list Saw/examined the patient in room 289 He is doing okay today; states his vertigo is improving and his balance and ambulatory function also improving developed some headaches yesterday, which seemed similar to his sinus headaches Problem List Medical Problems: (1) Dizziness Status: Acute (2) Vertigo Status: Acute (3) Vertigo Status: Chronic (4) Vomiting Status: Acute Review of Systems Constitutional: + weakness Respiratory: No shortness of breath Cardiac: No chest pain Abdomen: No diarrhea, No nausea, No pain, No vomiting Neurologic: + balance problems, + vertigo Medications Current Inpatient Medications Medications (Trade) Dose Ordered Sig/Ericka Route Start Time Stop Time Status Last Admin Dose Admin Enoxaparin Sodium 40 mg 40 mg Q24H SC 07/13/16 08:00 08/12/16 07:59 07/14/16 08:11 40 MG Sodium Chloride (Nss 1000ml) 1,000 ml @ 50 mls/hr Q20H IV 07/12/16 23:18 08/11/16 23:17 07/13/16 19:38 50 MLS/HR Acetaminophen (Tylenol Tab) 650 mg Q4H PRN PO 07/12/16 23:30 08/11/16 23:29 07/13/16 18:47 650 MG Ondansetron HCl (Zofran Inj) 4 mg Q6H PRN IV 07/12/16 23:30 08/11/16 23:29 Meclizine HCl (Antivert Tab) 25 mg TID PRN PO 07/12/16 23:30 08/11/16 23:29 07/14/16 09:26 25 MG Albuterol/ Ipratropium (Duoneb) 3 ml QIDR INH 07/13/16 08:00 08/12/16 07:59 07/14/16 07:15 3 ML Aspirin (Ecotrin Tab) 81 mg QAM PO 07/13/16 09:00 08/12/16 08:59 07/14/16 08:13 81 MG Cetirizine HCl (zyrTEC TAB) 10 mg DAILY PO 07/13/16 09:00 08/12/16 08:59 07/14/16 08:13 10 MG Dicyclomine HCl (Bentyl Cap) 10 mg TID PRN PO 07/12/16 23:45 08/11/16 23:44 Docusate Sodium (coLACE CAP) 100 mg BID PO 07/13/16 09:00 08/12/16 08:59 07/14/16 08:13 100 MG Gabapentin (Neurontin Cap) 100 mg TID PO 07/13/16 09:00 08/12/16 08:59 07/14/16 08:12 100 MG Montelukast Sodium (Singulair Tab) 10 mg HS PO 07/13/16 21:00 08/12/16 20:59 07/13/16 19:41 10 MG Primidone (Mysoline Tab) 100 mg HS PO 07/13/16 21:00 08/12/16 20:59 07/13/16 19:41 100 MG Miscellaneous Information (Order Awaiting Action) 1 ea QS N/A 07/13/16 08:00 08/12/16 07:59 Miscellaneous Information (Order Awaiting Action) 1 ea QS N/A 07/13/16 08:00 08/12/16 07:59 Miscellaneous Information (Order Awaiting Action) 1 ea QS N/A 07/13/16 08:00 08/12/16 07:59 Pantoprazole Sodium (Protonix Tab) 40 mg DAILY PO 07/13/16 09:00 08/12/16 08:59 07/14/16 08:13 40 MG Miscellaneous Information (Order Awaiting Action) 1 ea QS N/A 07/13/16 08:00 08/12/16 07:59 Polyethylene (Miralax Powder Packet) 17 gm DAILY PRN PO 07/12/16 23:45 08/11/16 23:44 07/13/16 19:38 17 GM Ranitidine HCl (zANTac TAB) 300 mg HS PO 07/13/16 21:00 08/12/16 20:59 07/13/16 19:42 300 MG Miscellaneous (Iv Fluids Completed) 1 ea PRN PRN N/A 07/13/16 02:00 07/13/17 01:59 Sodium Chloride ([place] Nasal [place]) 1 sprays PRN PRN NA 07/13/16 17:15 08/12/16 17:14 07/14/16 08:15 1 SPRAYS Diazepam (Valium Tab) 2 mg HS PRN PO 07/13/16 20:30 08/12/16 20:29 07/13/16 23:23 2 MG Objective Vital Signs Date Time Temp Pulse Resp B/P Pulse Ox O2 Delivery O2 Flow Rate FiO2 07/14/16 08:00 Room Air 07/14/16 07:33 36.6 64 18 104/69 93 Room Air 07/14/16 07:15 71 12 93 Room Air 07/14/16 04:38 36.4 64 20 112/66 92 Room Air 07/14/16 04:00 Room Air 07/14/16 00:00 Room Air 07/13/16 23:47 36.6 67 18 120/74 94 Room Air 07/13/16 20:00 Room Air 07/13/16 19:38 36.4 69 20 147/87 93 Room Air 07/13/16 19:01 69 18 93 Room Air 07/13/16 16:00 Room Air 07/13/16 15:13 36.3 74 18 138/77 92 Room Air 07/13/16 12:00 Room Air 07/13/16 11:40 73 18 118/70 07/13/16 11:19 71 18 96 Room Air Physical Exam General Appearance: no apparent distress Respiratory/Chest: lungs clear, normal breath sounds, no respiratory distress, no accessory muscle use Cardiovascular: regular rate, rhythm, no edema, no murmur Extremities: normal inspection, no pedal edema Neurologic/Psychiatric: + pertinent finding (+essential tremor) Laboratory Results Last 24 Hours Test 07/14/16 06:55 White Blood Count 7.72 K/uL Red Blood Count 4.35 M/uL Hemoglobin 13.7 g/dL Hematocrit 40.4 % Mean Corpuscular Volume 92.9 fL Mean Corpuscular Hemoglobin 31.5 pg Mean Corpuscular Hemoglobin Concent 33.9 g/dl RDW Standard Deviation 48.9 fL RDW Coefficient of Variation 14.3 % Platelet Count 278 K/uL Mean Platelet Volume 9.6 fL Sodium Level 144 mmol/L Potassium Level 3.7 mmol/L Chloride Level 107 mmol/L Carbon Dioxide Level 29 mmol/L Anion Gap 8.0 mmol/L Blood Urea Nitrogen 13 mg/dl Creatinine 0.70 mg/dl Est Creatinine Clear Calc Drug Dose 138.4 ml/min Estimated GFR () 124.9 Estimated GFR (Non- 107.7 BUN/Creatinine Ratio 19.2 Random Glucose 99 mg/dl Calcium Level 8.5 mg/dl Assessment and Plan This is a 55 year old male with PMH of essential tremor, cholesteatoma of left ear, COPD, hyperlipidemia, with recent admission due to viral gastroenteritis and possible vertigo presents with dizziness Vertigo 07/14 Vertigo; appreciate neurology input will continue Meclizine increased dose of Gabapentin He is a follow-up with solution engineer regarding sinus headaches, [place] [facility] for tremors outpatient PCP follow-up d/c planning for today (07/14) 07/13 patient presents with clinical symptoms of vertigo Head CT and Brain MRI performed - ruled out acute process likely related to positional vertigo Meclizine, Zofran PRN PT for William ambulate in hallways neurology consultation due to multiple episodes of vertigo COPD not in exacerbation continue home inhalers Recent Viral Gastroenteritis with some abdominal tenderness during admission no tenderness currently KUB with no acute findings IVFs and monitor Essential Tremor at baseline Continue Mysoline DVT ppx Lovenox FULL CODE
[2016-07-14 11:12] VITALS: PULSE 78; O2SAT 93
[2016-07-14] MEDS ORDERED: ANT25 PO (11:51)
[2016-07-14] MEDS ORDERED: GABA-112 PO (11:51)
--- NOTE | 2016-07-14 11:55 | Discharge Instructions ---
Discharge Instructions Date of Service Jul 14, 2016. Admission Reason for Admission: Vertigo Discharge Discharge Diagnosis / Problem: Vertigo Discharge Goals Goal(s): Decrease discomfort, Improve function, Diagnostic testing, Therapeutic intervention Activity Recommendations Activity Limitations: resume your previous activity . Instructions / Follow-Up Instructions / Follow-Up Please follow-up with Dr. Walls on July 17 @ 10:20AM * You will be given meclizine, take this three times a day; primary care can decide on tapering this down * Your dose of gabapentin is increased to 200mg TID * Outpatient follow-up with neurology in [place] * Outpatient follow-up with ENT regarding cholesteatoma of the L ear * Outpatient follow-up with hospitalist physician regarding sinus problems/headaches Current Hospital Diet Patient's current hospital diet: AHA Diet (Heart Healthy) Discharge Diet Recommended Diet: AHA Diet (Heart Healthy) Pending Studies Studies pending at discharge: no Medical Emergencies . Who to Call and When: Medical Emergencies: If at any time you feel your situation is an emergency, please call 911 immediately. . Non-Emergent Contact Non-Emergency issues call your: Primary Care Provider . . "Provider Documentation" section prepared by Isaiah Brandt. . VTE Core Measure Inpt VTE Proph given/why not?: Enoxaparin (Lovenox)SQ
--- NOTE | 2016-07-14 11:57 | Discharge Summary ---
Discharge Summary Date of Service Jul 14, 2016. Discharge Summary Admission Date: Jul 12, 2016 at 23:25 Discharge Date: Jul 14, 2016 Discharge Disposition: Home Principal Diagnosis: Vertigo Medication Reconciliation New Medications: Diazepam (Valium) 2 Mg Tab 1 TAB PO Q6H PRN for Dizziness or Vertigo for 5 Days, #20 TAB Ondansetron Odt (Zofran Odt) 8 Mg Soltab 8 MG SL Q6H PRN for Nausea for 10 Days, #40 TAB Meclizine HCl (Meclizine HCl) 25 Mg Tab 25 MG PO TID for 10 Days, #30 TAB Changed Medications: Gabapentin (Neurontin) 100 Mg Cap 200 MG PO TID for 15 Days, #90 CAP (Changed from: 100 MG) Continued Medications: Amoxicillin & Pot Clavulanate (Augmentin 875-125 mg) 1 Tab Tab 1 TAB PO BID PRN for Asthma/COPD Rescue Kit, #20 TAB Aspirin (Aspirin 81) 81 Mg Tab 81 MG PO QAM Azelastine Hcl (Astepro) 0.15 % Spr 2 SPRY EDGAR BID, ML Cetirizine Hcl (Zyrtec) 10 Mg Tab 10 MG PO DAILY Cyclosporine (Ophth) (Restasis) 0.05 % Emu 1 DROP OPB BID, BTL Dicyclomine Hcl (Dicyclomine Hcl) 10 Mg Cap 10 MG PO TID PRN for Stomach Pain/Cramping Docusate Sodium (Docusate Sodium) 100 Mg Cap 100 MG PO BID, CAP Fluorometholone (Ophth) (Fluorometholone) 0.1 % Dayna 1 DROP OPB BID Furosemide (Lasix) 20 Mg Tab 20 MG PO QAM PRN for Fluid Retention/Weight Gain, TAB Hydroxyzine Pamoate (Vistaril) 25 Mg Cap 25 MG PO Q6H PRN for Itching, CAP Ipratropium-Albuterol (Combivent Respimat) 1 Aer Aer 1 PUFF INH Q4-6HRS PRN for Shortness of Breath, INH DO NOT EXCEED 6 DOSES IN 24 HOURS Ipratropium-Albuterol (Duoneb) 3 Ml Nebu 1 TREATMENT INH QID PRN for SOB/Wheezing, INHA USE IN PLACE OF COMBIVENT Lansoprazole (Prevacid) 30 Mg Cap 30 MG PO DAILY Mometasone Furoate-Formoterol (Dulera 200/5 Mcg) 1 Aer Aer 2 PUFFS INH BID, GM Montelukast Sodium (Singulair) 10 Mg Tab 10 MG PO HS, TAB Polyethylene Glycol 3350 (Miralax) 1 Pow Pow 17 GM PO DAILY PRN for Constipation, GM Prednisone (Prednisone Tab) 20 Mg Tab 40 MG PO UD PRN for COPD Rescue Kit for 5 Days, TAB TAKE TWO TABLETS DAILY WITH FOOD FOR 5 DAYS Primidone (Mysoline) 50 Mg Tab 100 MG PO HS, TAB Ranitidine (Zantac) 300 Mg Tab 300 MG PO HS, TAB Saline (Saline Nasal [place]) 0.65 % Spr 1 SPRAY EDGAR Q2-4HRS PRN for Nasal Congestion Tiotropium [place] (Spiriva Handihaler) 30 Puff/540 Mcg Aerp 1 CAP INH QAM, INHALER Triamcinolone Acet (Triamcinolone Acetonide) 45 Appln/15 Gm Cr 1 APPLN TOP TID, GM Admission Information HPI (per Admitting provider): Patient is a 55 yr old male with PMH of COPD, essential tremor, Cholesteatoma of left ear, Former tobacco use, GERD, hearing loss presents with history of worsening Vertigo. Patient was recently discharged after being treated for possible viral gastroenteritis and Vertigo presents with worsening dizziness which he states as room spinning since this morning. Dizziness is associated with frontal headache, nausea, blurry vision. Dizziness improves on closing his eyes. States bright light worsens his vertigo but denies any double vision. No history of fall or head trauma. Also denies any weakness, tinnitus. He is frustrated that he had similar symptoms during previous admission and has not resolved since then. Also reports having intermittent abdominal cramping which is diffuse and constipation since last admission. Reports chronic SOB and wheezing, denies cough, chest pain currently. He has been following with Neurologist in [place] for a tumor behind his right ear that he receives an MRI every six months. He states he could not get a biopsy of the tumor because of the location of the tumor. Physical Exam (per Admitting): General Appearance: WD/WN, no apparent distress Head: normocephalic, atraumatic Eyes: normal inspection, PERRL, EOMI, sclerae normal, + pertinent finding (+ Vertical Nystagmus ) ENT: normal ENT inspection, + pertinent finding (Positive hearing loss) Neck: supple, no JVD, trachea midline Respiratory/Chest: chest non-tender, no accessory muscle use, + decreased breath sounds, + wheezing Cardiovascular: regular rate, rhythm, no edema, no murmur Abdomen/GI: normal bowel sounds, soft, + pertinent finding (Mild LLQ tender) Back: normal inspection Extremities/Musculoskelatal: normal inspection, no pedal edema Neurologic/Psych: 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 II-XII nml as tested, no motor/sensory deficits, alert , normal mood/affect, oriented x 3, + pertinent finding (+Vertical Nystagmus) Skin: normal color, warm/dry Lymphatic: no adenopathy Hospital Course This is a 55 year old male with PMH of essential tremor, cholesteatoma of left ear, COPD, hyperlipidemia, with recent admission due to viral gastroenteritis and possible vertigo presents with dizziness Vertigo 07/14 Vertigo; appreciate neurology input will continue Meclizine increased dose of Gabapentin He is a follow-up with furrier designer regarding sinus headaches, [place] neurology for tremors outpatient PCP follow-up d/c planning for today (07/14) 07/13 patient presents with clinical symptoms of vertigo Head CT and Brain MRI performed - ruled out acute process likely related to positional vertigo Meclizine, Zofran PRN PT for William ambulate in [facility] consultation due to multiple episodes of vertigo COPD not in exacerbation continue home inhalers Recent Viral Gastroenteritis with some abdominal tenderness during admission no tenderness currently KUB with no acute findings IVFs and monitor Essential Tremor at baseline Continue Mysoline DVT ppx Lovenox FULL CODE Total time spent on discharge = 25 minutes This includes examination of the patient, discharge planning, medication reconciliation, and communication with other providers. Discharge Instructions Please follow-up with Dr. Walls on July 17 @ 10:20AM * You will be given meclizine, take this three times a day; primary care can decide on tapering this down * Your dose of gabapentin is increased to 200mg TID * Outpatient follow-up with neurology in [place] * Outpatient follow-up with ENT regarding cholesteatoma of the L ear * Outpatient follow-up with furrier designer regarding sinus problems/headaches Additional Copies To Gale Walls M.D. (MEDICAL)
[2016-07-14 12:02] VITALS: BP 150/87; PULSE 74; TEMP 36.5; O2SAT 93
--- NOTE | 2016-07-14 12:19 | PROGRESS NOTE ---
DATE: 07/14/2016 DATE: 07/14/2016. Carlos seems better today. His vertigo is under better control. He had an acute episode overnight that responded to Valium. He is wondering if he could not get a prescription for this to be used as needed in addition to the meclizine. His gabapentin dose is fairly stable at 100 mg 3 times a day. I would suggest it might be increased to 200 mg 3 times a day at the time of discharge to see if this will help some of his headache and add some benefit to his tremor, which is being managed currently by a single dose of primidone 100 mg at bedtime. The headache is not an issue, particularly now although it comes episodically. He is scheduled to see Tamiko Goins in [place] and his ear, nose and throat physician in [place] within the relatively near future, although Dr. Goins's appointment is out until September which for her is a relatively short wait. On exam today, he still has no nystagmus. He can move his head freely without inducing vertigo. The attempt at William maneuvers yesterday only made things worse and should not be retried. His speech is clear. He has little more prominent tremor of the hands than I noticed yesterday, all consistent with his essential tremor and the rest of the exam is nonfocal. His sister is in the room and he does provide a history of a strong dominant familial tremor pattern here and she herself is on multiple medications and takes gabapentin as well. My recommendations are then pretty much as they were yesterday: 1. He can be discharged with followup with Dr. Walls his family physician. 2. He should continue the Meclizine 25 mg 3 times a day. I would suggest a p.r.n. dose of Valium 2.5 to 5 mg be given for severe attacks of vertigo. 3. He needs to follow up with his ear, nose and throat physician who has been following the cholesteatoma for years and he is going to try to move this up and then discuss with him the issue of his vertigo, and perhaps further management. 4. He needs to keep jesu appointment with Tamiko Goins as scheduled for other ideas concerning his headache management which might include depending on how he does on medications, injection therapy and even Botox in the future. 5. He should continue to follow up with Dr. Bro for his essential tremor issue and followup of the jugular sheath meningioma. Regarding this latter, the patient remains convinced that somehow this small tumor is responsible for his headaches and I tried once again to reassure him that probably it was not as the headache history really goes back quite a number of years and is more consistent with episodic migraines or some variant of vascular headachesbeginning probably 10 or more years ago whereas this mass lesion has probably not been there that long. Whatever the case, I do not feel he needs followup in our neurology department as he seems to be well covered at [facility]. ALONZO
[2016-07-14] MEDS ORDERED: DIAZ2TAB PO (13:06)
[2016-07-14] MEDS ORDERED: ONDA8TAB62 SL (13:06)
[2016-07-14 13:22] VITALS: BP 150/87; PULSE 74; TEMP 36.5; O2SAT 93
[2016-07-14] MEDS: SODIUM CHLORIDE 0.9% 1000ML 1,000 ML IV SCH (13:53)
== END 2016-07-14 14:00 | disposition home or self-care (01) ==
LOC: ENRESERVTM → ENRESERVDT → C.EDB 16:58 → C.MED 23:25
PROVIDERS: ADMIT Internal Medicine; ATTEND Family Medicine
DX: H81.10 Benign paroxysmal vertigo, unspecified ear (principal); J44.9 Chronic obstructive pulmonary disease, unspecified; G25.0 Essential tremor; H71.92 Unspecified cholesteatoma, left ear; K21.9 Gastro-esophageal reflux disease without esophagitis; H91.90 Unspecified hearing loss, unspecified ear; E78.5 Hyperlipidemia, unspecified; Z87.891 Personal history of nicotine dependence; Z79.82 Long term (current) use of aspirin; Z79.52 Long term (current) use of systemic steroids; Z83.3 Family history of diabetes mellitus; Z84.1 Family history of disorders of kidney and ureter; Z82.49 Family history of ischemic heart disease and other diseases of the circulatory system; Z80.3 Family history of malignant neoplasm of breast; Z80.52 Family history of malignant neoplasm of bladder; Z80.7 Family history of other malignant neoplasms of lymphoid, hematopoietic and related tissues; Z80.6 Family history of leukemia